=== PATIENT | female | born 1930 | race Caucasian/White ===

== ENCOUNTER 2016-07-18 16:47 | Inpatient (IN) | payer MEDICARE, OTHER ==
[~2016-07-18] VITALS: Ht 152.4 cm; Wt 38.6 kg
[~2016-07-18 16:47] MED LIST: CALC12502 PO; CENTTAB PO; CHOL1TAB5 PO; DIAZ5 PO; IBAN150T3 PO; IMIT25TA PO; PROT40TA PO; ZOLO25TA PO; [UNRECOGNIZED DRUG - REMARK]
[2016-07-18 16:53] VITALS: RESP 16; TEMP 97.9
[2016-07-18 16:58] VITALS: BP 188/85; PULSE 82; RESP 16; TEMP 98; O2SAT 96
[2016-07-18] MEDS ORDERED: BONI150T PO (17:04)
--- NOTE | 2016-07-18 17:13 | PD ---
HPI Chief Complaint: General Weakness Time Seen by Provider: 17:02 Travel History International Travel<30 days: No Contact w/Intl Traveler<30days: No Traveled to known affect area: No History of Present Illness HPI 85-year-old female sent in by her primary care physician Dr. Nunes for evaluation of generalized weakness and inability to ambulate. According to his office note the patient has been worked up for this by him, has been seen by an outpatient neurologist, full outpatient workup has been negative. Today the patient is unable to rise out of her walker. Patient denies any physical complaints other than generalized weakness. No fevers or recent illness. No chest pain or dyspnea. No headache. PFSH Past Medical History Anxiety: Yes High Cholesterol: Yes GERD: Yes Migraines: Yes Past Surgical History Abdominal Surgery: Yes Appendectomy: Yes Hysterectomy: Yes Tonsillectomy: Yes Social History Alcohol Use: No Tobacco Use: No Substance Use: No Allergies-Medications (Allergen,Severity, Reaction): Coded Allergies: Demerol (Verified Allergy, Mild, HULLICINATION, 07/18/16) Reported Meds & Prescriptions Reported Meds & Active Scripts Active Zoloft (Sertraline HCl) 25 Mg Tab 25 Mg PO DAILY Protonix (Pantoprazole Sodium) 40 Mg Tab 40 Mg PO DAILY Reported Boniva (Ibandronate Sodium) 150 Mg Tab 150 Mg PO Q28D Calcium Carbonate 1,250 Mg Tab 1,250 Mg PO DAILY 1,250 mg calcium carbonate (500 mg elemental calcium) D 5000 (Cholecalciferol) 5,000 Unit Tab 1 Tab PO WEEKLY Centrum Silver (Multiple Vitamins W/ Minerals) 1 Tab 1 Tab PO DAILY Review of Systems Except as stated in HPI: all other systems reviewed are Neg Physical Exam Narrative GENERAL: Well-developed, frail, elderly-appearing female, comfortable, awake, alert, no acute distress. SKIN: Warm and dry. HEAD: Atraumatic. Normocephalic. EYES: Pupils equal and round. No scleral icterus. No injection or drainage. ENT: Mucous membranes pink and moist. NECK: Trachea midline. No JVD. CARDIOVASCULAR: Regular rate and rhythm. RESPIRATORY: No accessory muscle use. Clear to auscultation. Breath sounds equal bilaterally. GASTROINTESTINAL: Abdomen soft, non-tender, nondistended. MUSCULOSKELETAL: No obvious deformities. No clubbing. No cyanosis. No edema. NEUROLOGICAL: Awake and alert. No obvious cranial nerve deficits. Motor grossly within normal limits. Normal speech. No focal deficits. PSYCHIATRIC: Appropriate mood and affect; insight and judgment normal. Data Data Last Documented VS Vital Signs Date Time Temp Pulse Resp B/P Pulse Ox O2 Delivery O2 Flow Rate FiO2 07/18/16 17:31 96 Room Air 07/18/16 16:58 98.0 82 16 188/85 Orders Complete Blood Count With Diff (07/18/16:08) Comprehensive Metabolic Panel (07/18/16 17:08) Prothrombin Time / Inr (Pt) (07/18/16 17:08) Act Partial Throm Time (Ptt) (07/18/16:08) Urinalysis - C+S If Indicated (07/18/16:08) Iv Access Insert/Monitor (07/18/16:08) Ecg Monitoring (07/18/16:08) Oximetry (07/18/16:08) Sodium Chloride 0.9% Flush (Ns Flush) (07/18/16 17:15) Electrocardiogram (07/18/16 17:08) Cath For Specimen (07/18/16 17:08) Ckmb (Isoenzyme) Profile (07/18/16 17:21) Troponin I (07/18/16 17:21) MDM Medical Decision Making Medical Screen Exam Complete: Yes Emergency Medical Condition: Yes Interpretation(s) EKG: Sinus, rate 79, normal axis, normal intervals, slight ST depressions in lateral leads, no ST segment elevations. Differential Diagnosis Metabolic abnormality, anemia, UTI, intracranial abnormality, generalized weakness Narrative Course Vital signs show heart rate 2, blood pressure 188/85, pulse ox 96% on room air, oral temp of 98F Case discussed with nuclear medical technologist Dr. Boyer who discussed the case with the patient's primary care physician Dr. Nunes. The patient will be admitted to their service for further treatment and evaluation of generalized weakness, inability to ambulate. All labs will be followed up by them. Diagnosis Primary Impression: Generalized muscle weakness Additional Impression: Unable to ambulate Admitting Information Admitting Physician Requests: Observation Leonard Pedraza MD Jul 18, 2016 17:13
[2016-07-18] MEDS ORDERED: SODIUM CHLORIDE 0.9% FLUSH 5 ML FLUSH IVF PRN (17:15)
[2016-07-18 17:31] VITALS: O2SAT 96
[2016-07-18 17:46] LABS: AUTOMATED NEUTROPHIL # 6.5 TH/MM3 (1.8-7.7); BASOPHIL % 0.2 % (0.0-2.0); EOSINOPHIL % 0.2 % (0.0-4.0); HEMATOCRIT 38.6 % (35.0-46.0); HEMO FLAGS DIFF FINAL; LYMPH % 17.7 % (9.0-44.0); LYMPHOCYTE # 1.6 TH/MM3 (1.0-4.8); MEAN CORPUSCULAR HEMOGLOBIN 33.1 PG (27.0-34.0); MEAN CORPUSCULAR HGB CONC 34.8 % (32.0-36.0); MONO % 8.3 % (0.0-8.0); NEUT % 73.6 % (16.0-70.0); PLATELET COUNT 194 TH/MM3 (150-450); RED BLOOD COUNT 4.07 MIL/MM3 (4.00-5.30); RED CELL DISTRIBUTION WIDTH 13.2 % (11.6-17.2); WHITE BLOOD COUNT 8.9 TH/MM3 (4.0-11.0)
[2016-07-18 17:49] LABS: BLOOD, URINE NEG (NEG); COMMENT (UR) CATH-CULT NOT IND; CULTURE IF INDICATED CATH CULTURE NOT IND; GLUCOSE,URINE NEG (NEG); KETONE, URINE 40 mg/dL (NEG); NITRITE,URINE NEG (NEG); URINE COLOR YELLOW (YELLW/STRAW)
[2016-07-18 17:57] LABS: APTT (PATIENT) 24.7 SEC (24.3-30.1); PROTHROMBIN TIME - PATIENT 10.8 SEC (9.8-11.6)
[2016-07-18 18:01] VITALS: BP 155/75; PULSE 80; RESP 18; O2SAT 96
[2016-07-18 18:01] LABS: ANION GAP 10 MEQ/L (5-15); AST (GOT) 13 U/L (15-37); BICARBONATE 26.5 MEQ/L (21.0-32.0); BLOOD UREA NITROGEN 18 MG/DL (7-18); CHLORIDE 103 MEQ/L (98-107); GLOMERULAR FILTRATION RATE 60 ML/MIN (>89); POTASSIUM 3.3 MEQ/L (3.5-5.1); SODIUM (NA) 139 MEQ/L (136-145)
--- NOTE | 2016-07-18 18:02 | HHI.HP ---
[facility] Service Family Medicine Primary Care Physician Clement Nunes MD Admission Diagnosis generalized weakness, unable to ambulate Diagnoses: International Travel<30 Days: No Contact w/Intl Traveler<30days: No Known Affected Area: No History of Present Illness Patient is an 85-year-old female who presents to the ED following outpatient visit for work-up of generalized weakness. PCP is Dr. Nunes. She was seen in acute clinic at the [facility] this morning 08/04/2016. She does note these symptoms are chronic, with acute exacerbation. Onset was 3 years ago. Since October she has had notably worsening symptoms and has undergone extensive outpatient workup. Over the last three days she has not been able to walk at all. This has gotten worse over the last three days. Has a hard time getting in and out of bed. She began having a hard time pushing the walker. She feels weak and lightheaded, "I' ve had that for a while." Has had four falls, most recently in May 2016; she hit arms and mid-back with the fall (against kitchen cabinet). Other falls were more remote, including March 2016 onto carpeted floor. Work-up as outpatient includes labs, bone density scan, echocardiogram, has seen Neurology who performed an EMG of LE which were normal, has seen Cardiology. She states Neurologist wanted to order MRI but she did not want to proceed with this at that time. She had home physical therapy in April 2016 - May 2016. Uses a seated walker at home. Has a cane but cannot use this due to poor balance. She feels weak in "the whole body." She also endorses tremors in the legs, left leg started before right leg, which began three months and three weeks ago, respectively. She denies headaches, fevers, chills, shortness of breath. No chest pain. No fevers or recent respiratory or diarrheal illnesses. Flu shot was administered in January. No other recent vaccinations. (Liberty Vitale MD R1) Review of Systems Constitutional: COMPLAINS OF: Weight loss (25lb over three years), DENIES: Fever, Chills Eyes: DENIES: Blurred vision, Vision loss Ears, nose, mouth, throat: DENIES: Tinnitus, Nasal discharge, Throat pain, Running Nose Respiratory: DENIES: Cough, Snoring, Wheezing Cardiovascular: DENIES: Chest pain, Palpitations Gastrointestinal: COMPLAINS OF: Constipation, DENIES: Abdominal pain, Black stools, Bloody stools, Diarrhea, Nausea, Vomiting, Difficulty Swallowing Genitourinary: COMPLAINS OF: Urinary frequency, DENIES: Urinary incontinence, Urgency Musculoskeletal: DENIES: Stiffness Integumentary: DENIES: Rash Hematologic/lymphatic: DENIES: Lymphadenopathy Neurologic: COMPLAINS OF: Abnormal gait, Localized weakness (generalized), Paresthesias (feet), Tremor (legs), Poor Balance, DENIES: Headache, Seizures, Speech Problems Psychiatric: COMPLAINS OF: Anxiety (Liberty Vitale MD R1) Past Family Social History Past Medical History Migraines - "not anymore" GERD Anxiety/Panic attacks Shingles - 2010 with post-herpetic neuralgia. She lost a sense of taste, smell, and appetite. Lost 25 pounds over three years time. She now has appetite but not able to gain it back. 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 Moderate aortic valve insufficiency. Grade 2 diastolic dysfunction. Mild mitral valve regurgitation without enlargement of the left atrium. Mild tricuspid valve regurgitation with enlargement of the right atrium. Mild pulmonary valve insufficiency. Discrete upper septal thickening. Bone density 04/07/15: Mild to moderate osteoporosis noted within the lumbar spine at L1-L4. There is been a 9.8% decrease in bone mineral density within the lumbar spine at L1-L4 compared to 04/03/07. Mild to moderate osteoporosis is noted within the left femoral neck. Moderate osteoporosis is noted within the right femoral neck. There is been an 18.1% decrease in total mean proximal femur density compared to 04/03/07. 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) Tobacco: never Alcohol: 5 drinks per year Illicit drug use: none Health Maintenance: Zostavax: never had - had shingles in 2010 Pneumonia: 2010 Tetanus: 2010 Flu: 2016 colonoscopy: 03/14/13: 1 polyp removed, diverticulosis, biopsy done mammogram: 01/09/13: negative influenza vaccine: 01/16/13 Moh's procedure for BCC nose: 12/18/12 DEXA: 2008 - osteopenia Reported Medications Zoloft (Sertraline HCl) 25 Mg Tab 25 Mg PO DAILY - x 1 month Protonix (Pantoprazole Sodium) 40 Mg Tab 40 Mg PO DAILY Reported Boniva (Ibandronate Sodium) 150 Mg Tab 150 Mg PO Q28D Calcium Carbonate 1,250 Mg Tab 1,250 Mg PO DAILY 1,250 mg calcium carbonate (500 mg elemental calcium) D 5000 (Cholecalciferol) 5,000 Unit Tab 1 Tab PO WEEKLY Centrum Silver (Multiple Vitamins W/ Minerals) 1 Tab 1 Tab PO DAILY (Liberty Vitale MD R1) Allergies: Coded Allergies: Demerol (Verified Allergy, Mild, HULLICINATION, 07/18/16) Physical Exam Vital Signs Vital Signs Date Time Temp Pulse Resp B/P Pulse Ox O2 Delivery O2 Flow Rate FiO2 07/18/16 17:31 96 Room Air 07/18/16 16:58 98.0 82 16 188/85 96 Room Air 07/18/16 16:53 97.9 16 Physical Exam GENERAL: This is a very thin female patient. She is lying in bed in no apparent distress. SKIN: No rashes. Ecchymoses noted on the dorsal surface left hand. Skin is cool and dry. Sacral area free of lesions. HEAD: Atraumatic. Normocephalic. No temporal or scalp tenderness. EYES: Pupils equal round and reactive. Extraocular motions intact. No scleral icterus. No injection or drainage. ENT: Nose without bleeding, purulent drainage or septal hematoma. Throat without erythema, tonsillar hypertrophy or exudate. Uvula midline. Airway patent. NECK: Trachea midline. No JVD or lymphadenopathy. Supple, nontender, no meningeal signs. CARDIOVASCULAR: Regular rate and rhythm without murmurs, gallops, or rubs. RESPIRATORY: Clear to auscultation. Breath sounds equal bilaterally. No wheezes , rales, or rhonchi. GASTROINTESTINAL: Abdomen soft, non-tender, nondistended. No hepato-splenomegaly , or palpable masses. No guarding. MUSCULOSKELETAL: Arthritic changes of hands. Extremities without clubbing, cyanosis, or edema. No joint tenderness, effusion, or edema noted. No calf tenderness. Negative Homans sign bilaterally. NEUROLOGICAL: Awake and alert. Cranial nerves II through XII intact. Motor and sensory within normal limits. Borderline 4/5 muscle strength in all muscle groups. Normal speech. Cerebellar tests within normal limits. No pronator drift. Laboratory Laboratory Tests Test 07/18/16 07/18/16 17:12 17:22 White Blood Count 8.9 Red Blood Count 4.07 Hemoglobin 13.5 Hematocrit 38.6 Mean Corpuscular Volume 95.0 Mean Corpuscular Hemoglobin 33.1 Mean Corpuscular Hemoglobin 34.8 Concent Red Cell Distribution Width 13.2 Platelet Count 194 Mean Platelet Volume 8.3 Neutrophils (%) (Auto) 73.6 Lymphocytes (%) (Auto) 17.7 Monocytes (%) (Auto) 8.3 Eosinophils (%) (Auto) 0.2 Basophils (%) (Auto) 0.2 Neutrophils # (Auto) 6.5 Lymphocytes # (Auto) 1.6 Monocytes # (Auto) 0.7 Eosinophils # (Auto) 0.0 Basophils # (Auto) 0.0 CBC Comment DIFF FINAL Differential Comment Prothrombin Time 10.8 Prothromb Time International 1.0 Ratio Activated Partial 24.7 Thromboplast Time Urine Color YELLOW Urine Turbidity HAZY Urine pH 7.0 Urine Specific [place] 1.011 Urine Protein NEG Urine Glucose (UA) NEG Urine Ketones 40 Urine Occult Blood NEG Urine Nitrite NEG Urine Bilirubin NEG Urine Urobilinogen LESS THAN 2.0 Urine Leukocyte Esterase NEG Urine RBC LESS THAN 1 Urine WBC 1 Urine Amorphous Sediment FEW Microscopic Urinalysis Comment CATH-CULT NOT IND (Liberty Vitale MD R1) Result Diagram: 07/18/16 1712 Assessment and Plan Assessment and Plan 85-year-old female presented for further workup of acute on chronic diffuse weakness. Labs collected at admission were unremarkable aside from mild hypokalemia. She'll be admitted for workup and evaluation by neurology service. Code Status Full code Discussed Condition With SDW Dr. Boyer (Liberty Vitale MD R1) Attending Attestation THIS CASE WAS DISCUSSED WITH THE RESIDENT PHYSICIANS. I HAVE REVIEWED THE RECORD AND AGREE WITH THE ABOVE NOTE AND PLAN OF CARE WAS DISCUSSED. I HAVE AUTHORIZED THE ORDER FOR ADMISSION TO AN IN-PATIENT STATUS. (Clement Nunes MD) Problem List: (1) Generalized muscle weakness Status: Acute Plan: 85 year old female with worsening weakness of unknown etiology with report of dizziness. Differential includes Guillain-Fountain syndrome, rheumatological dysfunction, depression, central nervous system lesion, previous stroke, cardiac source, failure to thrive. There is no evidence of focal neurologic deficit on exam today. She has been worked up with echocardiogram and cardiology consult as outpatient, unremarkable. EKG on admission showing sinus arrhythmia, rate 79, normal intervals, normal axis, no evidence of ST elevation, no contiguous leads with ST depression. Cardiac enzymes negative on admission. Plan: Basic labs, b12, folate, tsh MRI head without contrast Consult neurology for recommendations in further evaluation Patient requests Nino catheter due to immobility, will reevaluate tomorrow (2) Unable to ambulate Status: Acute Plan: Acute on chronic weakness resulting in inability to ambulate. Patient has requested Nino catheter due to extensive inability to move. This suggests an element of deconditioning which requires long-term rehabilitation. -PT, OT, and case management consulted to assist in discharge planning (3) Depression with anxiety Status: Acute Plan: Per patient, she has recently been started on Zoloft 25 mg. She denies any obvious benefit of the medication Will continue at this time (4) Hypertension Status: Acute (5) Fluids/Electrolytes/Nutrition/Prophylaxis Status: Acute Plan: Fluids: tolerating PO Electrolytes: Monitor and replete as needed Nutrition: Regular diet with added boost DVT Prophylaxis:Lovenox 40mg subQ q24hr GI Prophylaxis: not indicated (Liberty Vitale MD R1) Liberty Vitale MD R1 Jul 18, 2016 18:02 Clement Nunes MD Jul 19, 2016 11:12
[2016-07-18 18:04] LABS: ALKALINE PHOSPHATASE 55 U/L (45-117); ALT (GPT) 20 U/L (10-53); TOTAL BILIRUBIN ADULT 1.1 MG/DL (0.2-1.0)
[2016-07-18] MEDS ORDERED: SODIUM CHLORIDE 0.9% FLUSH 5 ML FLUSH FLUSH PRN (19:00)
[2016-07-18] MEDS ORDERED: PILL SPLITTER OTHER PRN (19:00)
[2016-07-18] MEDS ORDERED: ACETAMINOPHEN 325 MG TAB PO PRN (19:00)
[2016-07-18] MEDS ORDERED: NALOXONE HCL 0.4 MG/ML AMP IV PRN (19:00)
[2016-07-18] MEDS ORDERED: DOCUSATE SODIUM 50 MG/SENNA 8.6 MG TAB PO PRN (19:00)
[2016-07-18 19:22] VITALS: BP 169/80; PULSE 85; RESP 16; O2SAT 96
[2016-07-18 20:46] LABS: CREATINE KINASE 48 U/L (26-192)
[2016-07-18] MEDS: SODIUM CHLORIDE 0.9% FLUSH 5 ML FLUSH FLUSH SCH (21:00)
[2016-07-18] MEDS ORDERED: hydrALAZINE HCL 10 MG TAB PO PRN (21:15)
[2016-07-18] MEDS ORDERED: cloNIDine HCL 0.1 MG TAB PO PRN (21:15)
--- NOTE | 2016-07-18 21:38 | RADRPT ---
EXAM DATE/TIME: 07/18/2016 20:47 [facility] COMPARISON: CT BRAIN W/O CONTRAST, May 05, 2014, 11:10. INDICATIONS : Inability to ambulate. Weakness. MEDICAL HISTORY : Hypercholesterolemia. Gastroesophageal reflux disease. SURGICAL HISTORY : Appendectomy. Hysterectomy. Tonsillectomy. Cataracts. ENCOUNTER: Initial ACUITY: 1 day PAIN SCORE: 0/10 LOCATION: cranial TECHNIQUE: Multiplanar, multisequence MRI of the brain was performed without contrast. FINDINGS: CEREBRUM: The ventricles are normal for age. No evidence of midline shift, mass lesion, hemorrhage or acute in farction. No extraaxial fluid collections are seen. The pituitary gland and suprasellar cistern are normal in configuration. WHITE MATTER: On the flair weighted images there are scattered punctate small areas of increased signal throughout the white matter characteristic of chronic small vessel ischemic change. POSTERIOR FOSSA: The cerebellum and brainstem are intact. The 4th ventricle is midline. The cerebellopontine angle is unremarkable. The cerebellar tonsils are normal in position. DIFFUSION IMAGING: No focal areas of restricted diffusion are seen. No evidence of acute infarction. EXTRACRANIAL: The visualized portions of the orbits and paranasal sinuses are unremarkable. CONCLUSION: 1. No acute hemorrhage, stroke or mass effect. 2. Atrophy and chronic small vessel ischemic change. Cleveland Delvalle MD on July 18, 2016 at 21:35 Board Certified Radiologist. This report was verified electronically.
[2016-07-18] MEDS ORDERED: POTASSIUM CHLORIDE 10 MEQ CONTROLLED RELEASE TAB PO ONE (22:00)
[2016-07-19 04:22] LABS: AUTOMATED NEUTROPHIL # 6.8 TH/MM3 (1.8-7.7); BASOPHIL % 0.5 % (0.0-2.0); EOSINOPHIL # 0.1 TH/MM3 (0-0.4); EOSINOPHIL % 0.9 % (0.0-4.0); HEMATOCRIT 34.3 % (35.0-46.0); HEMO FLAGS DIFF FINAL; LYMPH % 18.3 % (9.0-44.0); LYMPHOCYTE # 1.8 TH/MM3 (1.0-4.8); MEAN CELL VOLUME 94.6 FL (80.0-100.0); MEAN CORPUSCULAR HEMOGLOBIN 33.7 PG (27.0-34.0); MEAN CORPUSCULAR HGB CONC 35.6 % (32.0-36.0); MONO % 9.8 % (0.0-8.0); NEUT % 70.5 % (16.0-70.0); PLATELET COUNT 168 TH/MM3 (150-450); RED BLOOD COUNT 3.63 MIL/MM3 (4.00-5.30); RED CELL DISTRIBUTION WIDTH 13.2 % (11.6-17.2); WHITE BLOOD COUNT 9.7 TH/MM3 (4.0-11.0)
[2016-07-19 04:58] LABS: BICARBONATE 25.5 MEQ/L (21.0-32.0); POTASSIUM 3.8 MEQ/L (3.5-5.1)
[2016-07-19 05:52] VITALS: BP 140/73; PULSE 72; RESP 18; TEMP 97.9; O2SAT 96
[2016-07-19 08:04] VITALS: BP 142/72; PULSE 78; RESP 18; TEMP 97.3; O2SAT 95
[2016-07-19] MEDS: CALCIUM CARBONATE 1.25 GM (CA 500 MG) TAB PO SCH (08:32)
[2016-07-19] MEDS: SERTRALINE HCL 50 MG TAB PO SCH (08:32)
[2016-07-19] MEDS: PANTOPRAZOLE SOD 40 MG DELAYED RELEASE TAB PO SCH (08:32)
[2016-07-19] MEDS: ENOXAPARIN SODIUM 40 MG/0.4 ML SYRINGE SQ SCH (08:32)
[2016-07-19] MEDS: SODIUM CHLORIDE 0.9% FLUSH 5 ML FLUSH FLUSH SCH ×2 (08:32→21:38)
[2016-07-19] MEDS: CARBIDOPA/LEVODOPA 10 MG/100 MG TAB PO SCH ×3 (10:06→21:38)
--- NOTE | 2016-07-19 11:11 | HHI.FPPN ---
Subjective Remarks No acute events overnight and patient is feeling relatively well this morning. She was able to get up and walk with physical therapy and states that it felt "great to walk" as she has been unable to do this at home. She denies any fevers or chills. She denies any nausea or vomiting. She denies any dizziness. She denies any chest pain or palpitations. She has breakfast next to her but has not eaten breakfast as of this time, nutrition has already been by to see her and told her they would add ensure to her meals. In summary this is an 85-year-old female who was sent to the emergency department from the acute care clinic for progressive weakness and inability to ambulate. This has been a progressive process over the course of the last several months. She has been evaluated in the outpatient by cardiology and neurology with a negative workup. She has also been worked up in the outpatient office with lab work is all returned normal. She most recently was treated for possible depression with Zoloft 25 mg that she has been on for the last 4 weeks. Echocardiogram done 04/07/15: Good left ventricular systolic function with an EF of 68%. Moderate aortic valve insufficiency. Grade 2 diastolic dysfunction. Mild mitral valve regurgitation without enlargement of the left atrium. Mild tricuspid valve regurgitation with enlargement of the right atrium. Mild pulmonary valve insufficiency. Discrete upper septal thickening. Bone density exam: 04/07/15: Mild to moderate osteoporosis is noted within the lumbar spine at L1 and L4. There is been a 9.8% decrease in bone mineral density within the lumbar spine at L1-L4 impaired to 04/03/07. Mild to moderate osteoporosis is noted within the left moral neck. Moderate osteoporosis is noted within the right femoral neck. 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) Tobacco: never Alcohol: 5 drinks per year Illicit drug use: none Health Maintenance: Zostavax: never had - had shingles in 2010 Pneumonia vaccination: 2010 Tetanus: 2010 Flu vaccination: Fall 2015 Objective Vitals Vital Signs Date Time Temp Pulse Resp B/P Pulse Ox O2 Delivery O2 Flow Rate FiO2 07/19/16 08:04 97.3 78 18 142/72 95 07/19/16 05:52 97.9 72 18 140/73 96 07/18/16 19:55 21 07/18/16 19:22 85 16 169/80 96 Room Air 07/18/16 18:01 80 18 155/75 96 Room Air 07/18/16 17:31 96 Room Air 07/18/16 16:58 98.0 82 16 188/85 96 Room Air 07/18/16 16:53 97.9 16 Result Diagram: 07/19/16 0404 07/19/16 0414 Objective Remarks GENERAL: This is a very thin female patient. She is lying in bed in no apparent distress. SKIN: No rashes. Ecchymoses noted on the dorsal surface left hand. HEAD: Atraumatic. Normocephalic. Facial twitching noted while talking. EYES: Pupils equal round and reactive. Extraocular motions intact. No scleral icterus. No injection or drainage. CARDIOVASCULAR: Regular rate and rhythm without murmurs, gallops, or rubs. RESPIRATORY: Clear to auscultation. Breath sounds equal bilaterally. No wheezes , rales, or rhonchi. GASTROINTESTINAL: Abdomen soft, non-tender, nondistended. MUSCULOSKELETAL: Arthritic changes of MCP, PIP, and DIP joints of hands. Extremities without clubbing, cyanosis, or edema. There does appear to be some cogwheeling of the upper extremities NEUROLOGICAL: Awake and alert. Cranial nerves II through XII intact. Urinary Catheter: Yes Assessment to: Continue Nino insert reason: Prolonged Immobilization Date of Insertion: Jul 18, 2016 Vascular Central Line Catheter: No A/P Assessment and Plan 85-year-old female presented progressive weakness and inability to ambulate Problem List: (1) Generalized muscle weakness Status: Acute Plan: Physical therapy and occupational consulted to evaluate patient MRI brain performed and was negative except for chronic ischemic changes MRI cervical spine pending Appreciate neurology evaluation of patient, started on carbidopa/levodopa 10 100 every 8 hours Awaiting formal neurology report from consultation Patient was started on Zoloft for possible depression given progressive loss of independence Psychiatry has been consulted to evaluate patient for possible adjunctive treatment for depression if needed Case management consulted to assist with discharge planning, likely will need rehabilitation at a rehabilitation center or assisted living facility Lab work including CBC and CMP within normal limits Vitamin B-12, folate, and TSH within normal limits (2) Unable to ambulate Status: Acute Plan: Acute on chronic weakness resulting in inability to ambulate. Workup as above (3) Depression with anxiety Status: Acute Plan: Currently on Zoloft 25 mg the patient states no obvious benefit Psychiatry consulted to evaluate patient (4) Failure to thrive in adult Status: Acute Plan: Nutrition consulted to evaluate patient Continue with regular diet Supplement meals with ensure shakes (5) Hypertension Status: Acute Plan: Patient not on oral anti-hypertensives as an outpatient Continue to monitor and use as needed medication (6) Fluids/Electrolytes/Nutrition/Prophylaxis Status: Acute Plan: Fluids: tolerating PO Electrolytes: Monitor and replete as needed Nutrition: Regular diet with added boost DVT Prophylaxis:Lovenox 40mg subQ q24hr GI Prophylaxis: not indicated Clement Nunes MD Jul 19, 2016 11:11
[2016-07-19] MEDS ORDERED: GADODIAMIDE PF 287 MG/ML 10 ML VIAL (for RAD MRI) IV ONE (12:16)
--- NOTE | 2016-07-19 12:52 | MB ---
cc: EDVIN SWENSON MD DATE OF CONSULTATION: 07/19/2016 REASON FOR CONSULTATION Generalized weakness and inability to ambulate. HISTORY OF PRESENT ILLNESS Ms. Miller is an 85-year-old female who presented to the [facility] Emergency Department following an outpatient work-up for generalized weakness. Her primary care physician referred her to the ER because of the acute on chronic weakness. The patient states that she has had progressive weakness over three years duration with difficulty in walking and tremor of both hands. The patient states that she has mild low backache but her legs feels stiff and occasionally she tends to fall and feels lightheaded. As a matter of fact she sustained multiple falls, the last one May 2016. The patient denies any sensory symptoms of the lower extremities, numbness or tingling, but she states that she is weak in both legs. She also complains of weakness of both upper extremities with tremor in both hands. She denies any history of injury to the neck or back or history of stroke or TIA. She has difficulty controlling her bladder and currently there is a Nino in place. The patient denies headache, double vision, blurred vision, speech difficulty, numbness of the face, passing out or convulsions. The patient denies any history of Parkinson's disease or family history of Parkinson's disease. Work-up as an outpatient included labs, bone density scan, echo and EMG of the lower extremities by a neurologist that she cannot recall the name of, and were reported as normal. The patient had some home physical therapy at the end of April to May and she uses a walker at baseline for stability. REVIEW OF SYSTEMS A 12-point review of systems is negative except for what is stated in the HPI. PAST MEDICAL HISTORY 1. History of migraine. 2. GERD. 3. Anxiety. 4. Panic attacks. 5. Shingles. 6. Postherpetic neuralgia and dizziness PAST SURGICAL HISTORY 1. Radical hysterectomy 1974. 2. Tonsillectomy and adenoidectomy 1949. 3. Bilateral cataract 2001 and 2005. FAMILY HISTORY Father of a stroke. Mother of lymphoma. Sister with hypertension and glaucoma. Children, two daughters are healthy. SOCIAL HISTORY She has and lives with her who is 92 and healthy and takes care of the house. Never smoked. Alcohol, five drinks per year. No illicit drug use. ALLERGIES DEMEROL. PHYSICAL EXAMINATION GENERAL: A very frail female patient not in acute distress, pleasant and a good historian. HEENT: Atraumatic, normocephalic. Normal vision and intact hearing. NECK: No signs of meningeal irritation. No carotid bruit. CARDIOVASCULAR: Regular rate and rhythm. PULMONARY: Clear to auscultation. No wheezes. EXTREMITIES: Evident ulnar deviation and traumatic nodules in bilateral hands with tremor of both hands. No clubbing or cyanosis. There is skin scaling bilateral lower extremities with deformed toes. NEUROLOGIC: Awake, alert, oriented to time, person and place. Cranial nerves are grossly intact. Motor examination reveals upper extremities 5-/5 bilateral and symmetrical with bilateral coarse hand tremor with cogwheel rigidity in bilateral upper extremities mainly at the elbow joint. Lower extremity bilateral hip flexion 4+/5, otherwise 5-/5 bilateral symmetrical. Mild stiffness in the bilateral lower extremities. No tremor noted in the lower extremities. Reflexes are 2+ with finger flexion bilateral upper extremities, right more than the left positive finger flexion. Lower extremities spastic, hyperreflexia bilateral knees, nonsustained clonus left ankle. Plantars left upgoing, right mute. Sensation is intact, bilateral and symmetrical. Cerebellar function, [id number] and qery-da-[id number] is intact. The patient would not stand up because she said that she has been catheterized and she does not want to stand up. DIAGNOSTIC IMAGING - MRI brain wo/c was reported with no acute hemorrhage, stroke or mass effect. There is atrophy and chronic small vessel ischemic changes noted. LABORATORY DATA WBC 9.7, hemoglobin 12.2, MCV 94.6, platelet count 168. Sodium 142, potassium 3.8, anion gap 11, BUN 24, creatinine 0.98. Vitamin B12 71, folate 30.9. TSH 0.946. INR 1. DIAGNOSTIC IMPRESSION 1. Extrapyramidal tremor with rigidity bilateral upper extremities. 2. 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 3. Gait difficulty, likely related to spastic lower extremities. PLAN 1. Neuro-checks q.4h. 2. Carbidopa/levodopa 10/100 mg three times daily. 3. Cervical spine MRI with and without contrast. 4. Physical therapy and occupational therapy recommendations are appreciated. 5. DVT prophylaxis with SCDs. 6. GI prophylaxis. Thank you for the opportunity to participate in the care of your patient. MD ARIADNE Solis /8:26 AM /11:26 AM MTDD
--- NOTE | 2016-07-19 13:04 | RADRPT ---
EXAM DATE/TIME: 07/19/2016 11:41 [place] COMPARISON: No previous studies available for comparison. INDICATIONS : Generalized weakness. CONTRAST: 8 cc Omniscan (gadodiamide) IV MEDICAL HISTORY : Gastroesophageal reflux disease. SURGICAL HISTORY : Tonsillectomy. Appendectomy. Hysterectomy. ENCOUNTER: Subsequent ACUITY: 3 day PAIN SCORE: 0/10 LOCATION: neck TECHNIQUE: Multiplanar, multisequence MRI examination of the cervical spine was performed. FINDINGS: VERTEBRAE: Normal vertebral body height. Homogeneous marrow signal. Prominent degenerative changes at C4-5 and C5-6. There is some minimal bony bridging posteriorly at C4-5. ALIGNMENT: Minimal retrolisthesis C5 on C6. CORD: Normal configuration and signal. POST FOSSA: The cerebellar tonsils are normal in position. POST-CONTRAST: No abnormal areas of enhancement are seen. C2-C3: The thecal sac has a normal configuration. There is no evidence of disc herniation or spinal canal stenosis. The neural foramina are patent bilaterally. C3-C4: The thecal sac has a normal configuration. There is no evidence of disc herniation or spinal canal s tenosis. The neural foramina are patent bilaterally. C4-C5: Broad-based posterior disc osteophyte complex without spinal canal stenosis. The neural foramina are patent bilaterally. C5-C6: Minimal retrolisthesis. Prominent broad-based posterior disc osteophyte complex abuts the ventral cor d and causes mild spinal canal stenosis. Uncovertebral spurring causes moderate bilateral neural for aminal narrowing. C6-C7: Minimal broad-based posterior disc osteophyte complex abuts the ventral thecal sac. No canal stenosis . The neural foramina are patent bilaterally. C7-T1: The thecal sac has a normal configuration. There is no evidence of disc herniation or spinal canal s tenosis. The neural foramina are patent bilaterally. CONCLUSION: 1. Prominent degenerative changes at C4-5 with broad based posterior disc osteophyte complex. No oscar l stenosis. 2. Minimal retrolisthesis C5 on C6 with broad-based posterior disc osteophyte complex causing mild ca nal stenosis. 3. Minimal broad-based posterior disc osteophyte complex at C6-7 without canal stenosis. Giancarlo Sow MD on July 19, 2016 at 12:58 Board Certified Radiologist. This report was verified electronically.
[2016-07-19 13:06] VITALS: BP 128/69; PULSE 75; RESP 18
[2016-07-19 16:00] VITALS: BP_SYST 108; PULSE 66; RESP 18; TEMP 97.9; O2SAT 97
[2016-07-19 20:00] VITALS: BP 113/64; PULSE 75; RESP 20; TEMP 98; O2SAT 97
[2016-07-20] VITALS (8 sets, daily range): BP systolic 109–154; BP diastolic 67–84; PULSE 68–79; RESP 18–20; TEMP 97.2–99.5; O2SAT 96–99
[2016-07-20] MEDS: CARBIDOPA/LEVODOPA 10 MG/100 MG TAB PO SCH ×3 (05:41→20:33)
--- NOTE | 2016-07-20 07:30 | EKG ---
Date Performed: 07/18/2016 Time Performed: 15:20:04 PTAGE: 85 years EKG: Sinus rhythm WITH SINUS ARRHYTHMIA Nonspecific ST wave changes Compared to prior tracing no significant change AB NORMAL ECG PREVIOUS TRACING : 12/28/2009 13.27 DOCTOR: Ryan Rodrigez Interpretating Date/Time 07/20/2016 07:28:10
[2016-07-20] MEDS: PANTOPRAZOLE SOD 40 MG DELAYED RELEASE TAB PO SCH (09:13)
[2016-07-20] MEDS: CALCIUM CARBONATE 1.25 GM (CA 500 MG) TAB PO SCH (09:13)
[2016-07-20] MEDS: SODIUM CHLORIDE 0.9% FLUSH 5 ML FLUSH FLUSH SCH ×2 (09:14→20:35)
[2016-07-20] MEDS: ENOXAPARIN SODIUM 40 MG/0.4 ML SYRINGE SQ SCH (09:14)
[2016-07-20] MEDS: SERTRALINE HCL 50 MG TAB PO SCH (09:14)
--- NOTE | 2016-07-20 12:08 | HHI.FPPN ---
Subjective Remarks Patient seen this morning. No acute events overnight. Vitals essentially WNL. Cele c/o visual hallucinations this morning. She thinks this is related to to sinemet. She is awake she is seeing things that should not be there. This morning, she states she "sees the TV, but it looks like it is on the celling". She reports weakness is unchanged. She did walk with PT yesterday. They have recommended rehab. Patient c/o [id number] urge incontinence. She has this at baseline, but now she is afraid she cannot walk to bathroom in time. She requested canchola on admission because of this. She is open to trying depends. No other complaints. Appetite increased yesterday, but down again today. She denies any N/V. Does not feel depressed. Does have some mild anxiety. She thinks this is from "not knowing what is going on with her ". Denies any SI. (Rod Herrera MD R3) Objective Vitals Vital Signs Date Time Temp Pulse Resp B/P Pulse Ox O2 Delivery O2 Flow Rate FiO2 07/20/16 08:19 98 21 07/20/16 08:00 97.4 71 20 135/79 98 07/20/16 04:00 97.2 75 20 154/84 99 07/20/16 00:00 98.2 68 20 114/67 97 07/19/16 21:50 21 07/19/16 20:00 98.0 75 20 113/64 97 07/19/16 16:00 97.9 66 18 108/ 97 07/19/16 13:06 75 18 128/69 I/O 07/19/16 07/19/16 07/19/16 07/20/16 07/20/16 07/20/16 07:00 15:00 23:00 07:00 15:00 23:00 Intake Total 400 ml 240 ml 240 ml Output Total 700 ml 400 ml 400 ml Balance -300 ml -160 ml -160 ml Intake Oral 400 ml 240 ml 240 ml Output Urine Total 700 ml 400 ml 400 ml # Bowel Movements 0 0 (Rod Herrera MD R3) Result Diagram: 07/19/16 0404 07/19/16 0414 Objective Remarks GENERAL: This is a very thin female patient. She is lying in bed in no apparent distress. ? masked facies. SKIN: No rashes. Ecchymoses noted on the dorsal surface left hand. CARDIOVASCULAR: Regular rate and rhythm without murmurs, gallops, or rubs. RESPIRATORY: Clear to auscultation. Breath sounds equal bilaterally. No wheezes , rales, or rhonchi. GASTROINTESTINAL: Abdomen soft, non-tender, nondistended. MUSCULOSKELETAL: Arthritic changes of MCP, PIP, and DIP joints of hands. Extremities without clubbing, cyanosis, or edema. There does appear to be some cogwheeling of the upper extremities (L>R) NEUROLOGICAL: Awake and alert. (Rod Herrera MD R3) Date of Insertion: Jul 18, 2016 (Rod Herrera MD R3) A/P Assessment and Plan 85-year-old female presented progressive weakness and inability to ambulate. Now c/o visual hallucination and persistent weakness on sinemet. Discharge Planning Needs discharge to SNF. Patient will need 3 night stay in hospital to qualify. Spoke with CM this AM regarding admitting criteria. Appreciate their assistance. Neuro, psych, and dietary to assess patient before DC. Will discuss with Dr. Nunes. (Rod Herrera MD R3) Attending Attestation Patient examined and case discussed with resident physician I have read the above note and agree with the assessment/plan as discussed with me I was involved in all medical decision making for this patient Clement Nunes M.D. (Clement Nuens MD) Problem List: (1) Generalized muscle weakness Status: Acute Plan: Likely FTT. Does have upper extremity spasticity. ? Parkinson's. -MRI brain performed and was negative except for chronic ischemic changes -MRI cervical spine shows diffuse degenerative disc disease with mild C5-C6 canal stenosis. -Patient was started on Zoloft for possible depression given progressive loss of independence -Physical therapy and occupational consulted to evaluate patient. Appreciate their care. They have recommended rehab at discharge. -Appreciate neurology evaluation of patient, started on carbidopa/levodopa 10 100 every 8 hours -Psychiatry has been consulted to evaluate patient for possible adjunctive treatment for depression if needed -Case management consulted to assist with discharge planning History: -Lab work including CBC and CMP within normal limits -Vitamin B-12, folate, and TSH within normal limits (2) Unable to ambulate Status: Acute Plan: Acute on chronic weakness resulting in inability to ambulate. Workup as above (3) Hallucination, visual Status: Acute Plan: Likely medication related. On further interview, patient has h/o similar hallucination with demerol. -cont sinemet for now. Patient will discuss concern for visual hallucination with neurology today. -?, though patient also c/o hallucination this AM. Order to keep lights dim with TV off at night. (4) Depression with anxiety Status: Acute Plan: Currently on Zoloft 25 mg the patient states no obvious benefit Psychiatry consulted to evaluate patient (5) Failure to thrive in adult Status: Acute Plan: Nutrition consulted to evaluate patient Continue with regular diet Supplement meals with ensure shakes (6) Urge incontinence Status: Acute Plan: Appears to be a chronic issue. Discussed with PT today. Patient transfers well. Will change activity to OOB with assistance. Order depends. YOVANNY canchola this afternoon + bladder training. (7) Hypertension Status: Acute Plan: Well controlled. Patient not on oral anti-hypertensives as an outpatient. Continue to monitor and use as needed medication (8) Fluids/Electrolytes/Nutrition/Prophylaxis Status: Acute Plan: Fluids: tolerating PO Electrolytes: Monitor and replete as needed Nutrition: Regular diet with added boost DVT Prophylaxis:Lovenox 40mg subQ q24hr GI Prophylaxis: not indicated (Rod Herrera MD R3) Rod Herrera MD R3 Jul 20, 2016 12:08 Clement Nunes MD Jul 20, 2016 13:53
[2016-07-20] MEDS ORDERED: MAGNESIUM HYDROXIDE SUSP 30 ML CUP PO ONE (12:15)
[2016-07-20] MEDS: DOCUSATE SODIUM 50 MG/SENNA 8.6 MG TAB PO SCH ×2 (13:14→20:34)
--- NOTE | 2016-07-20 17:54 | PD.CONS ---
Provisional Diagnosis Admission Date Jul 19, 2016 at 07:54 Clyman I. Adjustment disorder with anxiety and depression, history of depression and anxiety, delirium due to underlying medical conditions Clyman II. Deferred Clyman III. HTN, failure to thrive, urinary incontinent History of Present Illness Service Psychiatry Consult Requested By Primary Care Physician Clement Nunes MD HPI The patient is a 85-year-old woman, domicile with her in [facility], with psychiatric history of depression and anxiety, no history of psychiatric admissions, no suicidal attempts, she is in Zoloft 25 mg prescribed by PCP, medical history of hypertension, urinary incontinence, hospitalized due to failure to thrive, generalized weakness, frequent falls, electrolyte imbalance. Consulted to psychiatry due to symptoms of depression and anxiety and visual hallucinations. On psychiatric evaluation today the patient is calm , cooperative, she reports good mood at this moment, she denies depressive symptoms, she denies suicidal or homicidal ideation. She reports episodic anxiety, panic attacks consisting in sudden tachycardia, impending doom, sweating, chest pain and nausea sometimes. These attacks last for about 2-3 minutes. Patient is states that these attacks are related with the stress of her hospitalization and current medical conditions. She also endorses one time visual hallucinations, yesterday when she was watching TV she saw the TV moving to the roof. These hallucinations were no frightening for the patient and at every moment patient was insightful about the unreality of the event. Patient never had an episode like this before. Patient reports good sleep, good appetite and concentration. She prefers to continue with her antidepressant, but she refuses to take benzodiazepines "they make me dizzy". Patient is fully oriented 3, attentive, no fluctuation of consciousness, or gross cognitive impairment presents. Patient denies the use of drugs and alcohol. Review of Systems Constitutional: DENIES: Diaphoretic episodes, Fatigue, Fever, Weight gain, Weight loss, Chills, Dizziness, Change in appetite, Night Sweats Endocrine: DENIES: Abnorml menstrual pattern, Heat/cold intolerance, Polydipsia , Polyuria, Polyphagia Eyes: DENIES: Blurred vision, Diplopia, Eye inflammation, Eye pain, Vision loss , Photosensitivity, Double Vision Ears, nose, mouth, throat: DENIES: Tinnitus, Hearing loss, Vertigo, Nasal discharge, Oral lesions, Throat pain, Hoarseness, Ear Pain, Running Nose, Epistaxis, Sinus Pain, Toothache, Odynophagia Respiratory: DENIES: Apneas, Cough, Snoring, Wheezing, Hemoptysis, Sputum production, Shortness of breath Cardiovascular: DENIES: Chest pain, Palpitations, Syncope, Dyspnea on Exertion , PND, Lower Extremity Edema, Orthopnea, Claudication Genitourinary: DENIES: Abnormal vaginal bleeding, Dysmenorrhea, Dyspareunia, Sexual dysfunction, Urinary frequency, Urinary incontinence, Urgency, Hematuria , Dysuria, Nocturia, Vaginal discharge Musculoskeletal: DENIES: Joint pain, Muscle aches, Stiffness, Joint Swelling, Back pain, Neck pain Hematologic/lymphatic: DENIES: Bruising, Lymphadenopathy Immunologic/allergic: DENIES: Eczema, Urticaria Neurologic: DENIES: Abnormal gait, Headache, Localized weakness, Paresthesias, Seizures, Speech Problems, Tremor, Poor Balance Psychiatric: COMPLAINS OF: Anxiety, Depression, DENIES: Confusion, Mood changes, Hallucinations, Agitation, Suicidal Ideation, Homicidal Ideation, Delusions Past Family Social History Coded Allergies: Demerol (Verified Allergy, Mild, HULLICINATION, 07/18/16) Active Scripts Sertraline (Zoloft)25 Mg Tab25 Mg PO DAILY #30 TAB Ref 1 Prov:Clement Nunes MD 06/20/16 Pantoprazole (Protonix)40 Mg Tab40 Mg PO DAILY #90 TAB Ref 1 Prov:Clement Nunes MD 03/08/16 Reported Medications Ibandronate (Boniva)150 Mg Mob408 Mg PO Q28D #1 TAB Ref 0 07/18/16 Calcium Carbonate 1,250 Mg Tab1,250 Mg PO DAILY #90 TAB Ref 0 1,250 mg calcium carbonate (500 mg elemental calcium) 03/14/16 Cholecalciferol (D 5000)5,000 Unit Tab1 Tab PO WEEKLY #12 TAB Ref 1 03/08/16 Multiple Vitamins W/ Minerals (Centrum Silver)1 Tab1 Tab PO DAILY Ref 0 03/08/16 Current Medications Medications (Trade) Dose Ordered Sig/Blanka Route Start Time Stop Time Status Last Admin (Oscal) 1,250 mg DAILY PO 07/19/16 09:00 07/20/16 09:13 (Protonix) 40 mg DAILY PO 07/19/16 09:00 07/20/16 09:13 (Zoloft) 25 mg DAILY PO 07/19/16 09:00 07/20/16 09:14 (Pill Splitter) 1 ea UNSCH PRN OTHER 07/18/16 19:00 (NS Flush) 2 ml UNSCH PRN FLUSH 07/18/16 19:00 (NS Flush) 2 ml BID FLUSH 07/18/16 21:00 07/20/16 09:14 (Tylenol) 650 mg Q4H PRN PO 07/18/16 19:00 (Narcan Inj) 0.4 mg UNSCH PRN IV 07/18/16 19:00 (Mamta-Colace) 2 tab DAILY PRN PO 07/18/16 19:00 (Apresoline) 10 mg Q6HR PRN PO 07/18/16 21:15 (Catapres) 0.1 mg Q6H PRN PO 07/18/16 21:15 (Lovenox Inj) 40 mg Q24H SQ 07/19/16 09:00 07/20/16 09:14 (Sinemet 10-100 Mg) 1 tab Q8HR PO 07/19/16 09:15 07/20/16 13:14 (Mamta-Colace) 1 tab BID PO 07/20/16 13:00 Family History She denies family psychiatric history Social History Patient was born and raised in [place], she has been living in [place] for 4 years , she lives with her 92 years old in [facility], she has 2 daughters, her highest level of education is high school. Patient's Strengths (min. 2) Good cognition Physical Exam Vital Signs Vital Signs Date Time Temp Pulse Resp B/P Pulse Ox O2 Delivery O2 Flow Rate FiO2 07/20/16 12:00 98.1 78 20 128/72 98 07/20/16 08:19 21 07/18/16 19:22 Room Air I/O 07/19/16 07/19/16 07/20/16 08:00 16:00 00:00 Intake Total 400 ml 240 ml Output Total 700 ml 400 ml Balance -300 ml -160 ml Mental Status Examination Appearance Elderly woman, age appearing, good hygiene, calm and cooperative and pleasant Speech: Unremarkable Orientation: x3 Memory: Unremarkable Thought Process: Logical Thought Content: Unremarkable Hallucination Type: None Suicidal Ideation: No Previous Suicide Attempts: No Homicidal Ideation: No Previous Homicide Attempts: No Insight: Good Judgement: WNL Affect: Good Mood: Appropriate Motor Activity: Normal gait Assessment & Plan Problem List: (1) Depression with anxiety Assessment & Plan: The patient is a 85-year-old woman, domicile with her in [facility], with psychiatric history of depression and anxiety, no history of psychiatric admissions, no suicidal attempts, she is in Zoloft 25 mg prescribed by PCP, medical history of hypertension, urinary incontinence, hospitalized due to failure to thrive, generalized weakness, frequent falls, electrolyte imbalance. Consulted to psychiatry due to symptoms of depression and anxiety and visual hallucinations. On psychiatric evaluation today the patient is calm, cooperative, she reports good mood at this moment, she denies depressive symptoms, she denies suicidal or homicidal ideation. She reports episodic anxiety, panic attacks consisting in sudden tachycardia, impending doom , sweating, chest pain and nausea sometimes. These attacks last for about 2-3 minutes. Patient is states that these attacks are related with the stress of her hospitalization and current medical conditions. She also endorses one time visual hallucinations, yesterday when she was watching TV she saw the TV moving to the roof. At this moment the patient does not meet criteria for psychiatric admission. These isolated episode of visual hallucination could be related with delirium due to underlying medical conditions and no to a primary psychiatric illness. Will increase Zoloft to 50 mg to help with depression and anxiety. Xanax 0.25 mg every 8 hours when necessary anxiety also can be given. Extensive psychoeducation, supportive motivation provided. ICD Code: F41.8 Assessment & Plan Estimated LOS: George Macias MD Jul 20, 2016 17:54
--- NOTE | 2016-07-20 22:01 | HHI.PR ---
Review/Management Diagnosis 1. Extrapyramidal tremor with rigidity b/l UE, Parkinson's disease. 2. 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 3. Gait difficulty, likely related to spastic LE 3. Chronic anxiety/depression Plan - Neuro-checks q.4h. -Carbidopa/levodopa 10/100 mg three times daily. - Physical therapy and occupational therapy recommendations are appreciated. - DVT prophylaxis with SCDs. -GI prophylaxis - I explained to the patient that the ?hallucinations/visual/transient may be related to Parkinson's disease or adverse effect of Sinemet, and agreed to continue same dose if adverse effects do not persist. - Patient will need inpatient rehabilitation. Diagnosis/Plan: Subjective Subjective Comments No acute events reported Patient feels better s/p PT/OT Reports less tremor of both hands States that she had visual hallucinations, with mild delirium Cervical spine MRI revealed multiple degenerative disc disease Active Medications Current Medications Medications (Trade) Dose Ordered Sig/Blanka Route Start Time Stop Time Status Last Admin (Oscal) 1,250 mg DAILY PO 07/19/16 09:00 07/20/16 09:13 (Protonix) 40 mg DAILY PO 07/19/16 09:00 07/20/16 09:13 (Pill Splitter) 1 ea UNSCH PRN OTHER 07/18/16 19:00 (NS Flush) 2 ml UNSCH PRN FLUSH 07/18/16 19:00 (NS Flush) 2 ml BID FLUSH 07/18/16 21:00 07/20/16 20:35 (Tylenol) 650 mg Q4H PRN PO 07/18/16 19:00 (Narcan Inj) 0.4 mg UNSCH PRN IV 07/18/16 19:00 (Mamta-Colace) 2 tab DAILY PRN PO 07/18/16 19:00 (Apresoline) 10 mg Q6HR PRN PO 07/18/16 21:15 (Catapres) 0.1 mg Q6H PRN PO 07/18/16 21:15 (Lovenox Inj) 40 mg Q24H SQ 07/19/16 09:00 07/20/16 09:14 (Sinemet 10-100 Mg) 1 tab Q8HR PO 07/19/16 09:15 07/20/16 20:33 (Mamta-Colace) 1 tab BID PO 07/20/16 13:00 (Zoloft) 50 mg DAILY PO 07/21/16 09:00 Allergies Allergies Coded Allergies Demerol (Verified Allergy, Mild, HULLICINATION, 07/18/16) Exam I&O / VS 07/19/16 07/19/16 07/20/16 15:00 23:00 07:00 Intake Total 400 ml 240 ml 240 ml Output Total 700 ml 400 ml 400 ml Balance -300 ml -160 ml -160 ml Intake Oral 400 ml 240 ml 240 ml Output Urine Total 700 ml 400 ml 400 ml # Bowel Movements 0 0 Vital Signs Date Time Temp Pulse Resp B/P Pulse Ox O2 Delivery O2 Flow Rate FiO2 07/20/16 20:00 99.5 74 18 109/72 96 07/20/16 16:00 97.8 79 20 109/69 98 07/20/16 12:00 98.1 78 20 128/72 98 07/20/16 08:19 98 21 07/20/16 08:00 97.4 71 20 135/79 98 07/20/16 04:00 97.2 75 20 154/84 99 07/20/16 00:00 98.2 68 20 114/67 97 07/19/16 21:50 21 Exam Comments GENERAL: A very frail female patient not in acute distress, pleasant and a good historian. HEENT: Atraumatic, normocephalic. Normal vision and intact hearing. NECK: No signs of meningeal irritation. No carotid bruit. CARDIOVASCULAR: Regular rate and rhythm. PULMONARY: Clear to auscultation. No wheezes. EXTREMITIES: Evident ulnar deviation and traumatic nodules in bilateral hands with tremor of both hands. No clubbing or cyanosis. There is skin scaling b/l LE with deformed toes. NEUROLOGIC: Awake, alert, oriented to time, person and place. Cranial nerves are grossly intact. Motor examination reveals upper extremities 5-/5 bilateral and symmetrical with subtle hand tremor with mild cogwheel rigidity in b/l UE, mainly at the elbow joint. Lower extremity b/l hip flexion 4+/5, otherwise 5-/5 bilateral symmetrical. Mild stiffness in the bilateral lower extremities. No tremor noted in LE. Reflexes are 2+ with finger flexion bilateral upper extremities, right more than the left positive finger flexion. LE spastic,hyperreflexia bilateral knees, nonsustained clonus left ankle. Plantars left upgoing, right mute. Sensation is intact, bilateral and symmetrical. Cerebellar function, kexfpc-cw-homc and cpom-id-ogek is intact. The patient sits at the edge of the bed with OT nurse at bed side Objective Radiology Results Last 72 hours Impressions Cervical Spine MRI 07/19/16 0000 Signed Impressions: Service Date/Time: Tuesday, July 19, 2016 11:41 - CONCLUSION: 1. Prominent degenerative changes at C4-5 with broad based posterior disc osteophyte complex. No canal stenosis. 2. Minimal retrolisthesis C5 on C6 with broad-based posterior disc osteophyte complex causing mild canal stenosis. 3. Minimal broad-based posterior disc osteophyte complex at C6-7 without canal stenosis. Giancarlo Sow MD Brain MRI 07/18/16 0000 Signed Impressions: Service Date/Time: Monday, July 18, 2016 20:47 - CONCLUSION: 1. No acute hemorrhage, stroke or mass effect. 2. Atrophy and chronic small vessel ischemic change. Cleveland Delvalle MD OssiChace MD Jul 20, 2016 22:01
[2016-07-21] VITALS: BP 136/80; PULSE 76; RESP 18; TEMP 97.4; O2SAT 97
[2016-07-21] MEDS: CARBIDOPA/LEVODOPA 10 MG/100 MG TAB PO SCH ×3 (06:00→21:12)
[2016-07-21] MEDS ORDERED: ALPRAZolam 0.25 MG TAB PO PRN (07:15)
--- NOTE | 2016-07-21 07:19 | HHI.FPPN ---
Subjective Remarks Patient seen this morning. No acute events overnight. Vitals essentially WNL. Cele c/o continued visual hallucination. Again, she states she "sees the TV, but it looks like it is on the ceiling". Hallucinations are not worsening. Per nursing, no behavioral issues o/n. [place]ola out. Attempted bladder training overnight, but apparently patient stayed in bed all night and woke up wet. Daughter is brining her depends. Patient denies any F/C or N/V. Tolerating a PO diet. (Rod Herrera MD R3) Objective Vitals Vital Signs Date Time Temp Pulse Resp B/P Pulse Ox O2 Delivery O2 Flow Rate FiO2 07/21/16 00:00 97.4 76 18 136/80 97 07/20/16 20:00 99.5 74 18 109/72 96 07/20/16 19:47 97 21 07/20/16 16:00 97.8 79 20 109/69 98 07/20/16 12:00 98.1 78 20 128/72 98 07/20/16 08:19 98 21 07/20/16 08:00 97.4 71 20 135/79 98 I/O 07/20/16 07/20/16 07/20/16 07/21/16 07/21/16 07/21/16 07:00 15:00 23:00 07:00 15:00 23:00 Intake Total 240 ml 360 ml 220 ml Output Total 400 ml 325 ml 200 ml 200 ml Balance -160 ml 35 ml 20 ml -200 ml Intake Oral 240 ml 360 ml 220 ml Output Urine Total 400 ml 325 ml 200 ml 200 ml # Bowel Movements 0 (Rod Herrera MD R3) Result Diagram: 07/19/16 0404 07/19/16 0414 Objective Remarks GENERAL: This is a very thin female patient. Sitting up in bed in no apparent distress. ? masked facies. SKIN: No rashes. Ecchymoses noted on the dorsal surface left hand. CARDIOVASCULAR: Regular rate and rhythm without murmurs, gallops, or rubs. RESPIRATORY: Clear to auscultation. Breath sounds equal bilaterally. No wheezes , rales, or rhonchi. GASTROINTESTINAL: Abdomen soft, non-tender, nondistended. MUSCULOSKELETAL: Arthritic changes of MCP, PIP, and DIP joints of hands. Extremities without clubbing, cyanosis, or edema. There does appear to be some cogwheeling of the upper extremities (L>R) NEUROLOGICAL: Awake and alert. (Rod Herrera MD R3) Date of Insertion: Jul 18, 2016 (Rod Herrera MD R3) A/P Assessment and Plan 85-year-old female presented progressive weakness and inability to ambulate. Now c/o persistent visual hallucination weakness on sinemet. Discharge Planning Needs discharge to SNF. Patient will need 3 night stay in hospital to qualify. Spoke with CM this AM regarding admitting criteria. Appreciate their assistance. Patient has been approved at [facility] in [place]. Will discuss with Dr. Nunes. (Rod Herrera MD R3) Attending Attestation Pt. examined and case discussed with resident physicians I have read the above note and agree with the assessment/plan as discussed with me I was involved in all medical decision making for this patient Clement Nunes MD (Clement Nunes MD) Problem List: (1) Generalized muscle weakness Status: Acute Plan: Likely FTT. Does have upper extremity spasticity. ? Parkinson's. -MRI brain performed and was negative except for chronic ischemic changes -MRI cervical spine shows diffuse degenerative disc disease with mild C5-C6 canal stenosis. -Patient was started on Zoloft for possible depression given progressive loss of independence -Physical therapy and occupational consulted to evaluate patient. Appreciate their care. They have recommended rehab at discharge. -Appreciate neurology evaluation of patient, started on carbidopa/levodopa 10 100 every 8 hours. Per neuro, keep on this same dose for now. Monitor for persistent visual hallucinations. -Psychiatry has evaluated patient. Appreciate their recs. Will make xanax 0.25mg PO q8 available for anxiety. Increase Zoloft to 50mg daily. -Case management consulted to assist with discharge planning History: -Lab work including CBC and CMP within normal limits -Vitamin B-12, folate, and TSH within normal limits (2) Unable to ambulate Status: Acute Plan: Acute on chronic weakness resulting in inability to ambulate. -continue PT in the hospital with dispo to rehab facility. (3) Hallucination, visual Status: Acute Plan: Likely medication related. On further interview, patient has h/o similar hallucination with demerol. -cont sinemet for now, per neuro recs. -?, though patient also c/o hallucination this AM. Order to keep lights dim with TV off at night. (4) Depression with anxiety Status: Acute Plan: Has been assessed by psych. -add xanax, as above -zoloft increased to 50mg daily (5) Failure to thrive in adult Status: Acute Plan: Nutrition consulted to evaluate patient. -Continue with regular diet -Supplement meals with ensure shakes (6) Urge incontinence Status: Acute Plan: Appears to be a chronic issue. -canchola out -bladder training today -depends -changed activity to OOB with assistance (7) Hypertension Status: Acute Plan: Well controlled. Patient not on oral anti-hypertensives as an outpatient. -Continue to monitor and use as needed medication (8) Fluids/Electrolytes/Nutrition/Prophylaxis Status: Acute Plan: Fluids: tolerating PO Electrolytes: Monitor and replete as needed Nutrition: Regular diet with added boost DVT Prophylaxis:Lovenox 40mg subQ q24hr GI Prophylaxis: not indicated (Rod Herrera MD R3) Rod Herrera MD R3 Jul 21, 2016 07:19 Clement Nunes MD Jul 21, 2016 15:36
[2016-07-21] MEDS: DOCUSATE SODIUM 50 MG/SENNA 8.6 MG TAB PO SCH ×2 (07:28→21:12)
[2016-07-21 07:36] VITALS: O2SAT 98
[2016-07-21 08:00] VITALS: BP 104/66; PULSE 78; RESP 20; TEMP 97.6; O2SAT 98
[2016-07-21] MEDS: SERTRALINE HCL 50 MG TAB PO SCH (09:20)
[2016-07-21] MEDS: PANTOPRAZOLE SOD 40 MG DELAYED RELEASE TAB PO SCH (09:20)
[2016-07-21] MEDS: CALCIUM CARBONATE 1.25 GM (CA 500 MG) TAB PO SCH (09:21)
[2016-07-21] MEDS: SODIUM CHLORIDE 0.9% FLUSH 5 ML FLUSH FLUSH SCH ×2 (09:22→21:12)
[2016-07-21] MEDS: ENOXAPARIN SODIUM 40 MG/0.4 ML SYRINGE SQ SCH (09:22)
[2016-07-21 12:00] VITALS: BP 142/70; PULSE 75; RESP 20; TEMP 97.7; O2SAT 98
[2016-07-21] MEDS ORDERED: ALPR.25 PO (12:37)
[2016-07-21] MEDS ORDERED: ZOLO50TA PO (12:37)
[2016-07-21] MEDS ORDERED: SINE10100 PO (12:37)
--- NOTE | 2016-07-21 12:39 | HHI.DCPOC ---
Discharge Care Plan Diagnosis: (1) Failure to thrive in adult Goals to Promote Your Health * To prevent worsening of your condition and complications * To maintain your health at the optimal level Directions to Meet Your Goals Take your medications as prescribed Follow your dietary instruction Follow activity as directed Keep your appointments as scheduled Take your immunizations and boosters as scheduled If your symptoms worsen call your PCP, if no PCP go to Urgent Care Center or Emergency Room Smoking is Dangerous to Your Health. Avoid second hand smoke Call the 24-hour hour crisis hotline for domestic abuse at Rod Herrera MD R3 Jul 21, 2016 12:39
[2016-07-21 16:00] VITALS: BP 110/68; PULSE 75; RESP 20; TEMP 98.3; O2SAT 97
[2016-07-21 20:00] VITALS: BP 116/67; PULSE 72; RESP 16; TEMP 97.8; O2SAT 97
[2016-07-22 00:38] VITALS: BP 112/68; PULSE 70; RESP 18; TEMP 97.7; O2SAT 98
[2016-07-22 04:00] VITALS: BP 146/80; PULSE 73; RESP 18; TEMP 97.6; O2SAT 96
[2016-07-22] MEDS: CARBIDOPA/LEVODOPA 10 MG/100 MG TAB PO SCH (05:41)
[2016-07-22] MEDS ORDERED: SINE10100 PO ×2 (06:56→07:44)
[2016-07-22] MEDS ORDERED: ZOLO50TA PO ×2 (06:56→07:44)
[2016-07-22] MEDS ORDERED: ALPR.25 PO ×2 (06:56→07:44)
--- NOTE | 2016-07-22 07:43 | HHI.FPPN ---
Subjective Remarks Patient seen this morning. No acute events overnight. Vitals essentially WNL this AM. Cele reports strength subjectively improved compared to yesterday. She has been doing hip flexion/knee extension exercises and sit-ups in bed. She has been drinking Ensure, but wants to know if she can have Boost instead ( taste preference). Bladder training going well apparently. Has been getting OOB with assistance to commode. Has Depends, but have been dry. She had visual hallucination yesterday, but has not had any issues so far this morning. No other complaints. Anxious to go to rehab. (Rod Herrera MD R3) Objective Vitals Vital Signs Date Time Temp Pulse Resp B/P Pulse Ox O2 Delivery O2 Flow Rate FiO2 07/22/16 04:00 97.6 73 18 146/80 96 07/22/16 00:38 97.7 70 18 112/68 98 07/21/16 21:30 21 07/21/16 20:00 97.8 72 16 116/67 97 07/21/16 16:00 98.3 75 20 110/68 97 07/21/16 12:00 97.7 75 20 142/70 98 07/21/16 08:00 97.6 78 20 104/66 98 07/21/16 07:36 98 21 I/O 07/21/16 07/21/16 07/21/16 07/22/16 07/22/16 07/22/16 07:00 15:00 23:00 07:00 15:00 23:00 Intake Total 480 ml 240 ml Output Total 200 ml Balance -200 ml 480 ml 240 ml Intake Oral 480 ml 240 ml Output Urine Total 200 ml # Voids 2 4 # Bowel Movements 1 (Rod Herrera MD R3) Result Diagram: 07/19/16 0404 07/19/16 0414 Objective Remarks GENERAL: This is a very thin female patient. Sitting up in bed in no apparent distress. ? masked facies. SKIN: No rashes. Ecchymoses noted on the dorsal surface left hand. CARDIOVASCULAR: Regular rate and rhythm without murmurs, gallops, or rubs. RESPIRATORY: Clear to auscultation. Breath sounds equal bilaterally. No wheezes , rales, or rhonchi. GASTROINTESTINAL: Abdomen soft, non-tender, nondistended. MUSCULOSKELETAL: Arthritic changes of MCP, PIP, and DIP joints of hands. Extremities without clubbing, cyanosis, or edema. There does appear to be some cogwheeling of the upper extremities (L>R). 4/5 strength in bilateral LEs, improved compared to admission. NEUROLOGICAL: Awake and alert. No reported visual hallucination. (Rod Herrera MD R3) Date of Insertion: Jul 18, 2016 (Rod Herrera MD R3) A/P Assessment and Plan 85-year-old female presented progressive weakness and inability to ambulate. Now with subjectively improved strength with PT and sinemet. Discharge Planning Needs discharge to SNF. Patient has been approved at [facility]. Now meets Medicare requirements for SNF admission with 3 midnight stay. Will discuss with Dr. Nunes. (Rod Herrera MD R3) Attending Attestation Patient examined and case discussed with resident physicians I have read the above note and agree with the assessment/plan as discussed with me I was involved in all medical decision making for this patient Clement Nunes M.D. (Clement Nunes MD) Problem List: (1) Generalized muscle weakness Status: Acute Plan: Likely FTT. Does have upper extremity spasticity. ? Parkinson's. -MRI brain performed and was negative except for chronic ischemic changes -MRI cervical spine shows diffuse degenerative disc disease with mild C5-C6 canal stenosis. -Patient was started on Zoloft for possible depression given progressive loss of independence -Physical therapy and occupational consulted to evaluate patient. Appreciate their care. They have recommended rehab at discharge. -Appreciate neurology evaluation of patient, started on carbidopa/levodopa 10 100 every 8 hours. Visual hallucinations are improving. -Psychiatry has evaluated patient. Appreciate their recs. We have added xanax 0.25mg q8 PRN for anxiety and increased zoloft to 50mg daily. -Case management consulted to assist with discharge planning History: -Lab work including CBC and CMP within normal limits -Vitamin B-12, folate, and TSH within normal limits (2) Unable to ambulate Status: Acute Plan: Improving. Likely acute exacerbation of chronic issue. Patient has been ambulating with wheeled walker, but gait still unsteady. -continue PT in the hospital with dispo to rehab facility. (3) Hallucination, visual Status: Acute Plan: Improving. Likely medication related. On further interview, patient has h /o similar hallucination with demerol. -cont sinemet for now, per neuro recs. -?. Keep lights dim with TV off at night. (4) Depression with anxiety Status: Acute Plan: Has been assessed by psych. -xanax added and zoloft increased, as above (5) Failure to thrive in adult Status: Acute Plan: Nutrition consulted to evaluate patient. -Continue with regular diet -change to boost supplement, per patient request (6) Urge incontinence Status: Acute Plan: Mildly improved. Has been doing well with bedside commode. Appears to be a chronic issue. -depends -activity OOB with assistance (7) Hypertension Status: Acute Plan: Well controlled. Patient not on oral anti-hypertensives as an outpatient. -Continue to monitor and use as needed medication (8) Fluids/Electrolytes/Nutrition/Prophylaxis Status: Acute Plan: Fluids: tolerating PO Electrolytes: Monitor and replete as needed Nutrition: Regular diet with added boost DVT Prophylaxis:Lovenox 40mg subQ q24hr GI Prophylaxis: not indicated (Rod Herrera MD R3) Rod Herrera MD R3 Jul 22, 2016 07:43 Clement Nunes MD Jul 22, 2016 16:27
[2016-07-22 08:00] VITALS: BP 149/82; PULSE 74; RESP 18; TEMP 97.1; O2SAT 98
[2016-07-22 08:35] VITALS: O2SAT 98
[2016-07-22] MEDS: PANTOPRAZOLE SOD 40 MG DELAYED RELEASE TAB PO SCH (09:15)
[2016-07-22] MEDS: SERTRALINE HCL 50 MG TAB PO SCH (09:15)
[2016-07-22] MEDS: ENOXAPARIN SODIUM 40 MG/0.4 ML SYRINGE SQ SCH (09:15)
[2016-07-22] MEDS: DOCUSATE SODIUM 50 MG/SENNA 8.6 MG TAB PO SCH (09:15)
[2016-07-22] MEDS: CALCIUM CARBONATE 1.25 GM (CA 500 MG) TAB PO SCH (09:15)
[2016-07-22] MEDS: SODIUM CHLORIDE 0.9% FLUSH 5 ML FLUSH FLUSH SCH (09:16)
--- NOTE | 2016-08-10 10:50 | HHI.DS ---
Discharge Summary Admission Date Jul 19, 2016 at 07:54 Discharge Date: Jul 22, 2016 Admitting Diagnosis generalized weakness, unable to ambulate (1) Generalized muscle weakness Diagnosis: Principal Plan: Likely FTT. Does have upper extremity spasticity. ? Parkinson's. -MRI brain performed and was negative except for chronic ischemic changes -MRI cervical spine shows diffuse degenerative disc disease with mild C5-C6 canal stenosis. -Patient was started on Zoloft for possible depression given progressive loss of independence -Physical therapy and occupational consulted to evaluate patient. Appreciate their care. They have recommended rehab at discharge. -Appreciate neurology evaluation of patient, started on carbidopa/levodopa 10 100 every 8 hours. Visual hallucinations are improving. -Psychiatry has evaluated patient. Appreciate their recs. We have added xanax 0.25mg q8 PRN for anxiety and increased zoloft to 50mg daily. -Case management consulted to assist with discharge planning History: -Lab work including CBC and CMP within normal limits -Vitamin B-12, folate, and TSH within normal limits (2) Unable to ambulate Diagnosis: Secondary Plan: Improving. Likely acute exacerbation of chronic issue. Patient has been ambulating with wheeled walker, but gait still unsteady. -continue PT in the hospital with dispo to rehab facility. (3) Hallucination, visual Diagnosis: Secondary Plan: Improving. Likely medication related. On further interview, patient has h /o similar hallucination with demerol. -cont sinemet for now, per neuro recs. -?. Keep lights dim with TV off at night. (4) Depression with anxiety Diagnosis: Secondary Plan: Has been assessed by psych. -xanax added and zoloft increased, as above (5) Failure to thrive in adult Diagnosis: Secondary Plan: Nutrition consulted to evaluate patient. -Continue with regular diet -change to boost supplement, per patient request (6) Urge incontinence Diagnosis: Secondary Plan: Mildly improved. Has been doing well with bedside commode. Appears to be a chronic issue. -depends -activity OOB with assistance (7) Hypertension Diagnosis: Secondary Plan: Well controlled. Patient not on oral anti-hypertensives as an outpatient. -Continue to monitor and use as needed medication (8) Fluids/Electrolytes/Nutrition/Prophylaxis Diagnosis: Secondary Plan: Fluids: tolerating PO Electrolytes: Monitor and replete as needed Nutrition: Regular diet with added boost DVT Prophylaxis:Lovenox 40mg subQ q24hr GI Prophylaxis: not indicated [facility] (Dr. Rock) Brief History Patient is an 85-year-old female who presents to the ED following outpatient visit for work-up of generalized weakness. PCP is Dr. Nunes. She was seen in acute clinic at the [facility] this morning 08/04/2016. She does note these symptoms are chronic, with acute exacerbation. Onset was 3 years ago. Since October she has had notably worsening symptoms and has undergone extensive outpatient workup. Over the last three days she has not been able to walk at all. This has gotten worse over the last three days. Has a hard time getting in and out of bed. She began having a hard time pushing the walker. She feels weak and lightheaded, "I' ve had that for a while." Has had four falls, most recently in May 2016; she hit arms and mid-back with the fall (against kitchen cabinet). Other falls were more remote, including March 2016 onto carpeted floor. Work-up as outpatient includes labs, bone density scan, echocardiogram, has seen Neurology who performed an EMG of LE which were normal, has seen Cardiology. She states Neurologist wanted to order MRI but she did not want to proceed with this at that time. She had home physical therapy in April 2016 - May 2016. Uses a seated walker at home. Has a cane but cannot use this due to poor balance. She feels weak in "the whole body." She also endorses tremors in the legs, left leg started before right leg, which began three months and three weeks ago, respectively. She denies headaches, fevers, chills, shortness of breath. No chest pain. No fevers or recent respiratory or diarrheal illnesses. Flu shot was administered in January. No other recent vaccinations. PE at Discharge GENERAL: This is a very thin female patient. Sitting up in bed in no apparent distress. ? masked facies. SKIN: No rashes. Ecchymoses noted on the dorsal surface left hand. CARDIOVASCULAR: Regular rate and rhythm without murmurs, gallops, or rubs. RESPIRATORY: Clear to auscultation. Breath sounds equal bilaterally. No wheezes , rales, or rhonchi. GASTROINTESTINAL: Abdomen soft, non-tender, nondistended. MUSCULOSKELETAL: Arthritic changes of MCP, PIP, and DIP joints of hands. Extremities without clubbing, cyanosis, or edema. There does appear to be some cogwheeling of the upper extremities (L>R). 4/5 strength in bilateral LEs, improved compared to admission. NEUROLOGICAL: Awake and alert. No reported visual hallucination. Hospital Course 85 year-old female admitted 07/19 for weakness and inability to ambulate. Labs on admission including B12, folate, TSH were within normal limits. MRI head showed no acute change. Neurology was consulted. They recommended starting Sinemet. They also ordered C-spine MRI, which showed some degenerative disc disease along with mild C5-C6 canal stenosis. Physical therapy and occupational therapy were consulted. Patient had recently been started on 25 mg Zoloft. Psychiatry was consulted to assess need for additional medical therapy. They recommended increasing dose of Zoloft to 50 mg daily. They also recommended adding Xanax for anxiety. Patient's strength did improve with Sinemet. She initially complained of visual hallucination when starting the medication, which resolved by the end of her hospital course. She was discharged to rehabilitation on 07/22. Will need to follow up with primary care physician and neurology as an outpatient. Pt Condition on Discharge: Stable Discharge Disposition: Discharge to SNF Discharge Instructions DIET: Follow Instructions for: As Tolerated, No Restrictions Activities you can perform: Weight Bearing as Yesi Rod Herrera MD R3 Aug 10, 2016 10:50
[2016-09-06] MEDS ORDERED: ALPR.25 PO (16:42)
== END 2016-07-22 18:30 | DRG 641 ==
LOC: NEPA 16:47 → NEDH 17:36 → NEPFCDU 23:06 → OBSVTOIN 07-19 07:54 → HCPC 07-19 15:35
PROVIDERS: ADMIT Family Medicine; ATTEND Family Medicine
DX: R62.7 Adult failure to thrive (principal); M48.02 Spinal stenosis, cervical region; M62.838 Other muscle spasm; G25.2 Other specified forms of tremor; E87.6 Hypokalemia; N39.41 Urge incontinence; I10 Essential (primary) hypertension; F41.8 Other specified anxiety disorders; R44.1 Visual hallucinations; M50.322 Other cervical disc degeneration at C5-C6 level; K21.9 Gastro-esophageal reflux disease without esophagitis; M81.0 Age-related osteoporosis without current pathological fracture; R29.6 Repeated falls; R53.1 Weakness; R26.89 Other abnormalities of gait and mobility
CPT/HCPCS: 70551; 72156; 80048; 80053; 81001; 82550; 82607; 82746; 84443; 84484; 85025; 85610; 85730; 93005; A9579; G0378; J1650; P9612

== ENCOUNTER → 2016-10-13 | Outpatient (CLI) | payer MEDICARE, OTHER ==
[~2016-10-13] MED LIST changes: +ALPR.25 PO; +BONI150T PO; -DIAZ5 PO; -IBAN150T3 PO; -IMIT25TA PO; +SINE10100 PO; -ZOLO25TA PO; +ZOLO50TA PO; -[UNRECOGNIZED DRUG - REMARK]
[2016-10-13 09:37] LABS: HEMATOCRIT 37.5 % (35.0-46.0); MEAN CELL VOLUME 94.9 FL (80.0-100.0); MEAN CORPUSCULAR HEMOGLOBIN 31.2 PG (27.0-34.0); MEAN CORPUSCULAR HGB CONC 32.9 % (32.0-36.0); PLATELET COUNT 196 TH/MM3 (150-450); RED BLOOD COUNT 3.95 MIL/MM3 (4.00-5.30); RED CELL DISTRIBUTION WIDTH 14.6 % (11.6-17.2); REVIEW FLAG FINAL; WHITE BLOOD COUNT 7.7 TH/MM3 (4.0-11.0)
[2016-10-13 10:07] LABS: ANION GAP 8 MEQ/L (5-15); AST (GOT) 16 U/L (15-37); BICARBONATE 27.2 MEQ/L (21.0-32.0); BLOOD UREA NITROGEN 25 MG/DL (7-18); CHLORIDE 106 MEQ/L (98-107); GLOMERULAR FILTRATION RATE 48 ML/MIN (>89); GLUCOSE,FASTING 86 MG/DL (74-99); POTASSIUM 3.9 MEQ/L (3.5-5.1); SODIUM (NA) 141 MEQ/L (136-145)
[2016-10-13 10:18] LABS: ALKALINE PHOSPHATASE 118 U/L (45-117); ALT (GPT) 26 U/L (10-53); TOTAL BILIRUBIN ADULT 0.7 MG/DL (0.2-1.0)
== END ==
LOC: CLAB 08:56
PROVIDERS: ATTEND Family Medicine
DX: R53.83 Other fatigue (principal)
CPT/HCPCS: 36415; 80053; 84443; 85027

== ENCOUNTER → 2017-07-10 | Outpatient (CLI) | payer MEDICARE, OTHER ==
[~2017-07-10] MED LIST changes: -CENTTAB PO; -CHOL1TAB5 PO; +SERT-129 PO; +VITA500015 PO; -ZOLO50TA PO
[2017-07-10 09:17] LABS: HEMATOCRIT 35.4 % (35.0-46.0); HEMOGLOBIN 12.1 GM/DL (11.6-15.3); MEAN CELL VOLUME 92.7 FL (80.0-100.0); MEAN CORPUSCULAR HEMOGLOBIN 31.7 PG (27.0-34.0); MEAN CORPUSCULAR HGB CONC 34.2 % (32.0-36.0); MEAN PLATELET VOLUME 7.9 FL (7.0-11.0); PLATELET COUNT 192 TH/MM3 (150-450); RED BLOOD COUNT 3.82 MIL/MM3 (4.00-5.30); RED CELL DISTRIBUTION WIDTH 14.8 % (11.6-17.2); WHITE BLOOD COUNT 6.7 TH/MM3 (4.0-11.0)
[2017-07-10 09:47] LABS: ALBUMIN 3.7 GM/DL (3.4-5.0); AST (GOT) 18 U/L (15-37); BICARBONATE 26.3 MEQ/L (21.0-32.0); BLOOD UREA NITROGEN 33 MG/DL (7-18); CALCIUM 8.9 MG/DL (8.5-10.1); CHLORIDE 104 MEQ/L (98-107); CREATININE 1.19 MG/DL (0.50-1.00); GLOMERULAR FILTRATION RATE 43 ML/MIN (>89); GLUCOSE,FASTING 89 MG/DL (74-99); SODIUM (NA) 138 MEQ/L (136-145)
[2017-07-10 09:48] LABS: ALT (GPT) 7 U/L (10-53); CHOLESTEROL 243 MG/DL (120-200); TRIGLYCERIDES 133 MG/DL (42-150)
[2017-07-10 09:51] LABS: ALKALINE PHOSPHATASE 101 U/L (45-117); CHOLESTEROL/ HDL RATIO 3.45 RATIO; HDL CHOLESTEROL 70.3 MG/DL (40.0-60.0); LDL CHOLESTEROL 146 MG/DL (0-99); TOTAL BILIRUBIN ADULT 0.7 MG/DL (0.2-1.0); TOTAL PROTEIN 6.7 GM/DL (6.4-8.2)
== END ==
LOC: CLAB 08:22
PROVIDERS: ATTEND Family Medicine
DX: G20 Parkinson's disease (principal); E78.01 Familial hypercholesterolemia
CPT/HCPCS: 36415; 80053; 80061; 85027

== ENCOUNTER 2017-11-27 10:11 | Inpatient (IN) ==
[2017-11-27 11:01] LABS: ABG Base Excess -1.4 mmol/L (-2-2); ABG PCO2 32 mmHg (38-42); ABG PO2 66 mmHg (61-120)
[2017-11-27 11:05] LABS: Baso # (Auto) 0.1 th/mm3 (0.0-0.2); Baso % (Auto) 0.3 % (0.0-2.0); Hematocrit 32.1 % (35.0-46.0); Hemoglobin 11.1 gm/dL (11.6-15.3); Lymph # (Auto) 0.4 th/mm3 (1.0-4.8); Lymph % (Auto) 2.2 % (9.0-44.0); Mean Corpuscular HGB Conc 34.5 % (32.0-36.0); Mean Corpuscular Hemoglobin 31.7 pg (27.0-34.0); Mean Corpuscular Volume 91.8 fL (80.0-100.0); Mean Platelet Volume 8.1 fL (7.0-11.0); Mono # (Auto) 1.6 th/mm3 (0.0-0.9); Mono % (Auto) 8.3 % (0.0-8.0); Neut # (Auto) 16.9 th/mm3 (1.8-7.7); Neut % (Auto) 89.2 % (16.0-70.0); Platelet Count 212 th/mm3 (150-450); Red Cell Distribution Width 15.1 % (11.6-17.2); White Blood Count 18.9 th/mm3 (4.0-11.0)
[2017-11-27 11:30] LABS: Alanine Aminotransferase 11 U/L (10-53); Albumin 3.7 g/dL (3.4-5.0); Anion Gap 9 meq/L (5-15); Aspartate Aminotransferase 25 U/L (15-37); Blood Urea Nitrogen 42 mg/dL (7-18); Carbon Dioxide 24.5 meq/L (21.0-32.0); Chloride 107 meq/L (98-107); Glomerular Filtration Rate 34 mL/min (>89); Glucose,Random 107 mg/dL (74-106); Potassium 4.2 meq/L (3.5-5.1); Sodium 140 meq/L (136-145)
[2017-11-27 11:33] LABS: Alkaline Phosphatase 103 U/L (45-117); Creatine Kinase 174 U/L (26-192); Total Protein 6.4 g/dL (6.4-8.2)
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
[2017-11-27] MEDS ORDERED: Bisacodyl 10 MG Supp RECTAL PRN (12:43)
[2017-11-27] MEDS ORDERED: Acetaminophen 325 MG Tablet PO PRN (12:43)
[2017-11-27] MEDS ORDERED: Dextrose 50% in Water 50 ML Vial IV.PUSH PRN (12:46)
[2017-11-27] MEDS ORDERED: Potassium Phosphate Inj 30 MMOL in Sodium Chlor 0.9% Inj 250 ML IV.SIG PRN (12:47)
[2017-11-27] MEDS ORDERED: Magnesium Oxide 400 MG Tablet PO PRN (12:47)
[2017-11-27] MEDS ORDERED: Potassium Phosphate 500 MG Soluble Tablet PO PRN ×2 (12:47)
[2017-11-27] MEDS ORDERED: Sodium Phosphate Inj 30 MMOL in Sodium Chlor 0.9% Inj 250 ML IV.SIG PRN (12:47)
[2017-11-27] MEDS ORDERED: Potassium Chlor 40 mEq Premix 40 MEQ/100 ML PIGGYBACK IV.SIG PRN ×2 (12:47)
[2017-11-27] MEDS ORDERED: Potassium Chloride 25 MEQ Effervescent Tablet PO PRN (12:47)
[2017-11-27] MEDS ORDERED: Magnesium Sulfate Inj 2 GM in Sodium Chlor 0.9% Inj 96 ML IV.SIG PRN (12:47)
[2017-11-27] MEDS ORDERED: Magnesium Sulfate Inj 4 GM in Sodium Chlor 0.9% Inj 92 ML IV.SIG PRN (12:47)
[2017-11-27] MEDS ORDERED: Potassium Chlor 20 mEq Premix 20 MEQ/100 ML PIGGYBACK IV.SIG PRN (12:47)
[2017-11-27] MEDS ORDERED: ALPRAZolam 0.25 MG Tablet PO PRN (13:18)
[2017-11-27] MEDS: Heparin - SQ 10,000 UNITS/ML Vial SQ SCH ×2 (13:31→16:46)
[2017-11-27] MEDS: Sod Chloride 0.9% Inj 1,000 ML IV.CONT SCH (13:32)
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
[2017-11-27] MEDS ORDERED: Lidocaine 2% 100 MG/5 ML Syringe ONE (14:01)
[2017-11-27] MEDS ORDERED: Propofol 1000 mg/100 ml Inj 1,000 MG/100 ML BOTTLE ONE (14:01)
[2017-11-27] MEDS ORDERED: Succinylcholine Inj 200 MG/10 ML Vial ONE (14:02)
[2017-11-27] MEDS ORDERED: Norepinephrine Inj 4 MG/4 ML Ampul ONE (14:04)
[2017-11-27 14:18] LABS: Troponin I 0.17 ng/mL (0.02-0.05)
[2017-11-27] MEDS ORDERED: Morphine Inj 4 MG/ML Vial IV.PUSH PRN (15:15)
[2017-11-27] MEDS ORDERED: Etomidate Inj 20 MG/10 ML Ampul IV.PUSH ONE (15:26)
--- NOTE | 2017-11-27 15:34 | P.PCN ---
Date of procedure: 11/27/17 Pre-op diagnosis: Acute respiratory failure Post-op diagnosis: same Procedure: DATE: 11/27/2017 PROCEDURE: Orotracheal intubation INDICATION: Acute hypoxic respiratory failure/AMS DETAILS OF PROCEDURE The patient was placed in optimal position and preoxygenated with 100% FiO2 via bag valve mask. At the start oxygen saturation was unknown as pulse ox was not reading and patient appeared cyanotic %. The patient was administered no medication. I entered the oropharynx with a size 4 Esquivel laryngoscope blade and obtained a grade 3 view of the airway. On single attempt a size 8.0 cuffed endotracheal tube was passed and slipped down into the esophagus. Initially there was positive end-tidal CO2 detector changes however unable to maintain saturations. Endotracheal tube was removed. Again using a size 4 blade and again with direct visualization of was passed through the vocal cords. Correct tube location was confirmed with end tidal CO2 detector and by auscultating over bilateral lung vickers. The endotracheal tube was secured with adhesive tape at a depth of 23 cm at the lips. The patient was connected to the ventilator. The patient tolerated the procedure well without any apparent complications. Oxygen saturations were maintained greater than 95% all times. STAT chest x-ray pending at time of dictation.
--- NOTE | 2017-11-27 15:35 | P.PCN ---
Date of procedure: 11/27/17 Pre-op diagnosis: With elevated carboxyhemoglobin currently unresponsive with no IV access Post-op diagnosis: same Procedure: DATE: 11/27/2017 CENTRAL LINE PLACEMENT: Right internal jugular vein. Ultrasound-guided INDICATION: Central venous access CONSENT Informed consent for procedure was obtained from from daughter at bedside. DESCRIPTION OF THE PROCEDURE The patient was placed in supine position. The skin was cleansed with Chloraprep. Additional barrier precautions included large sterile drape, sterile gloves, sterile gown, face mask, and hat. 1 % lidocaine was used for local anesthesia. Under direct ultrasound guidance and on initial attempt, the vein was accessed with an introducer needle. The guide wire was advanced and the tract was dilated. Using Seldinger technique a 7 Welsh 20 cm antimicrobial coated triple-lumen catheter was advanced to a depth of 15 centimeters. The guide wire was removed. All ports had good return of dark venous blood and flushed easily with saline. The central line was secured with 2.0 silk. A sterile dressing with antibiotic disc was applied. ESTIMATED BLOOD LOSS: Minimal COMPLICATIONS: No apparent complications. STAT chest x-ray pending at time of dictation
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
[2017-11-27 16:13] LABS: ABG Base Excess -3.6 mmol/L (-2-2); ABG PCO2 39 mmHg (38-42); ABG PO2 376 mmHg (61-120)
[2017-11-27] MEDS ORDERED: SODIUM THIOSULFATE IV.SIG ONE (16:30)
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
[2017-11-27] MEDS: Oral Hygiene Kit OROPHARYNG SCH (17:16)
[2017-11-27] MEDS: Hypromellose 0.3% Opth Gel 10 GM Bottle EACH EYE SCH (17:16)
[2017-11-27] MEDS ORDERED: Midazolam Inj 5 MG/ML 1 ML Vial ONE (18:49)
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
[2017-11-27] MEDS ORDERED: Piperacil/Tazo 3.375 GM Premix 50 ML IV.SIG SCH (19:30)
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
[2017-11-27] MEDS ORDERED: Vancomycin Consult Pharmacy 1 EACH OTHER SCH (20:00)
[2017-11-27] MEDS: Senna/Docusate Sodium 8.6/50 MG Tablet PO SCH (20:15)
[2017-11-27] MEDS: Insulin NovoLOG Aspart Correctional Sugar Inj SQ SCH (20:17)
[2017-11-27] MEDS: Chlorhexidine 0.12% Oral Kit 15 ML UDC OROPHARYNG SCH (20:19)
[2017-11-27] MEDS ORDERED: Vancomycin Inj 700 MG in Sodium Chlor 0.9% Inj 250 ML IV.SIG ONE (21:00)
[2017-11-27] MEDS: Propofol 1000 mg/100 ml Inj 1,000 MG/100 ML BOTTLE IV.CONT PRN (21:39)
[2017-11-27 22:29] LABS: Amorphous Sediment,Urine Rare /hpf; Bacteria,Urine Moderate /hpf; Bilirubin,Urine Negative (Negative); Clarity,Urine Cloudy (Clear); Color,Urine Yellow (Yellw/Straw); Glucose,Urine (UA) 150 mg/dL (Negative); Hyaline Casts,Urine 1 /lpf (0-3); Leukocyte Esterase,Urine Trace (Negative); Mucus,Urine Few /lpf (Occasional); Nitrite,Urine Negative (Negative); Specific Gravity,Urine 1.017 (1.002-1.035); Squamous Epithelial Cell,Urine 1 /hpf (0-5)
[2017-11-27] MEDS: Piperacil/Tazo 2.25 GM Premix 50 ML IV.SIG SCH (22:38)
[2017-11-28] MEDS: Heparin 10,000 UNITS/10 ML Vial (for IV use) OTHER SCH ×4 (00:14→21:55)
[2017-11-28] MEDS: Hypromellose 0.3% Opth Gel 10 GM Bottle EACH EYE SCH ×3 (01:08→18:24)
[2017-11-28] MEDS: Oral Hygiene Kit OROPHARYNG SCH ×4 (01:08→16:40)
[2017-11-28] MEDS: Insulin NovoLOG Aspart Correctional Sugar Inj SQ SCH ×4 (01:12→19:35)
[2017-11-28] MEDS: Heparin - SQ 10,000 UNITS/ML Vial SQ SCH ×2 (01:13→14:09)
[2017-11-28] MEDS ORDERED: fentaNYL 10 mcg/mL Premix Drip 2,500 MCG/250 ML BAG IV.SIG PRN (02:02)
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
[2017-11-28] MEDS: Sod Chloride 0.9% Inj 1,000 ML IV.CONT SCH (03:25)
[2017-11-28] MEDS: Chlorhexidine Gluconate 2% 1 Pack (2 Cloths) TOPICAL SCH (03:25)
[2017-11-28] MEDS: Piperacil/Tazo 2.25 GM Premix 50 ML IV.SIG SCH ×4 (03:25→20:39)
[2017-11-28] MEDS ORDERED: Chlorhexidine Gluconate 2% 1 Pack (2 Cloths) TOPICAL PRN (04:00)
[2017-11-28 05:13] LABS: ABG Base Excess -6.2 mmol/L (-2-2); ABG PCO2 35 mmHg (38-42); ABG PO2 478 mmHG (61-120)
[2017-11-28] MEDS: Propofol 1000 mg/100 ml Inj 1,000 MG/100 ML BOTTLE IV.CONT PRN ×2 (05:58→23:42)
[2017-11-28 06:05] LABS: Baso % (Auto) 0.2 % (0.0-2.0); Eos % (Auto) 0.1 % (0.0-4.0); Hematocrit 30.6 % (35.0-46.0); Hemoglobin 10.6 gm/dL (11.6-15.3); Lymph # (Auto) 0.5 th/mm3 (1.0-4.8); Lymph % (Auto) 4.3 % (9.0-44.0); Mean Corpuscular HGB Conc 34.6 % (32.0-36.0); Mean Corpuscular Volume 92.4 fL (80.0-100.0); Mean Platelet Volume 8.1 fL (7.0-11.0); Mono # (Auto) 0.6 th/mm3 (0.0-0.9); Mono % (Auto) 5.2 % (0.0-8.0); Neut # (Auto) 9.6 th/mm3 (1.8-7.7); Neut % (Auto) 90.2 % (16.0-70.0); Platelet Count 131 th/mm3 (150-450); Red Blood Count 3.31 mil/mm3 (4.00-5.30); Red Cell Distribution Width 14.8 % (11.6-17.2); White Blood Count 10.7 th/mm3 (4.0-11.0)
[2017-11-28 06:16] LABS: Activated Partial Thrombo Time 31.1 sec (24.3-30.1); INR 1.2 Ratio; Prothrombin Time 12.3 sec (9.8-11.6)
[2017-11-28 06:26] LABS: Albumin 2.7 g/dL (3.4-5.0); Anion Gap 13 meq/L (5-15); Aspartate Aminotransferase 19 U/L (15-37); Blood Urea Nitrogen 35 mg/dL (7-18); Calcium 7.5 mg/dL (8.5-10.1); Carbon Dioxide 20.7 meq/L (21.0-32.0); Chloride 112 meq/L (98-107); Glomerular Filtration Rate 40 mL/min (>89); Glucose,Random 112 mg/dL (74-106); Potassium 3.2 meq/L (3.5-5.1); Sodium 146 meq/L (136-145)
[2017-11-28 06:30] LABS: Alanine Aminotransferase 9 U/L (10-53); Alkaline Phosphatase 76 U/L (45-117); Phosphorus 3.9 mg/dL (2.5-4.9); Total Protein 5.4 g/dL (6.4-8.2); Troponin I 0.14 ng/mL (0.02-0.05)
[2017-11-28] MEDS: Potassium Chlor 20 mEq Premix 20 MEQ/100 ML PIGGYBACK IV.SIG PRN ×4 (06:54→16:38)
[2017-11-28] MEDS: Senna/Docusate Sodium 8.6/50 MG Tablet PO SCH ×2 (08:31→20:38)
[2017-11-28] MEDS: Chlorhexidine 0.12% Oral Kit 15 ML UDC OROPHARYNG SCH ×2 (08:32→20:40)
[2017-11-28] MEDS: Beneprotein Powder Packet G-TUBE SCH ×3 (09:00→19:35)
[2017-11-28] MEDS ORDERED: Potassium Chlor 20 mEq Premix 20 MEQ/100 ML PIGGYBACK IV.SIG PRN (10:11)
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
[2017-11-28] MEDS ORDERED: Potassium Chlor 40 mEq Premix 40 MEQ/100 ML PIGGYBACK IV.SIG PRN (10:20)
[2017-11-28] MEDS ORDERED: Potassium Chloride 20 MEQ Pwd Pkt NG/OG ONE (10:49)
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
--- NOTE | 2017-11-28 11:07 | ECG ---
Date Performed: 11/27/2017 Time Performed: 13:23:47 PTAGE: 87 years EKG: Sinus rhythm NORMAL ECG PREVIOUS TRACING : 07/18/2016 15.20 DOCTOR: Lito Hernández Interpretating Date/Time 11/28/2017 11:05:41
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
[2017-11-28] MEDS: Midazolam 50 MG/50 ML Inj 50 MG/50 ML BAG IV.CONT PRN (13:21)
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
[2017-11-28] MEDS ORDERED: RASS Change Order MISCELLANE ONE ×2 (14:00)
[2017-11-29] MEDS: Insulin NovoLOG Aspart Correctional Sugar Inj SQ SCH ×2 (01:31→06:01)
[2017-11-29] MEDS: Hypromellose 0.3% Opth Gel 10 GM Bottle EACH EYE SCH ×2 (01:31→12:02)
[2017-11-29] MEDS: Oral Hygiene Kit OROPHARYNG SCH ×2 (01:32→04:57)
[2017-11-29] MEDS: Heparin - SQ 10,000 UNITS/ML Vial SQ SCH (01:35)
[2017-11-29 04:38] LABS: Activated Partial Thrombo Time 31.3 sec (24.3-30.1); INR 1.1 Ratio; Prothrombin Time 11.2 sec (9.8-11.6)
[2017-11-29 04:45] LABS: Alanine Aminotransferase 9 U/L (10-53); Albumin 2.4 g/dL (3.4-5.0); Alkaline Phosphatase 68 U/L (45-117); Anion Gap 12 meq/L (5-15); Aspartate Aminotransferase 20 U/L (15-37); Blood Urea Nitrogen 31 mg/dL (7-18); Calcium 7.8 mg/dL (8.5-10.1); Carbon Dioxide 17.9 meq/L (21.0-32.0); Chloride 115 meq/L (98-107); Creatine Kinase 145 U/L (26-192); Glomerular Filtration Rate 52 mL/min (>89); Glucose,Random 105 mg/dL (74-106); Phosphorus 2.6 mg/dL (2.5-4.9); Potassium 4.2 meq/L (3.5-5.1); Sodium 145 meq/L (136-145); Total Protein 5.1 g/dL (6.4-8.2); Vancomycin,Random 4.6 Comment
[2017-11-29] MEDS: Heparin 10,000 UNITS/10 ML Vial (for IV use) OTHER SCH ×2 (04:50→09:38)
[2017-11-29 04:53] LABS: Baso % (Auto) 0.5 % (0.0-2.0); Eos # (Auto) 0.1 th/mm3 (0.0-0.4); Eos % (Auto) 0.8 % (0.0-4.0); Hemoglobin 9.6 gm/dL (11.6-15.3); Lymph # (Auto) 0.5 th/mm3 (1.0-4.8); Lymph % (Auto) 6.2 % (9.0-44.0); Mean Corpuscular HGB Conc 34.1 % (32.0-36.0); Mean Corpuscular Hemoglobin 31.7 pg (27.0-34.0); Mean Corpuscular Volume 92.9 fL (80.0-100.0); Mean Platelet Volume 8.8 fL (7.0-11.0); Mono # (Auto) 0.5 th/mm3 (0.0-0.9); Mono % (Auto) 6.1 % (0.0-8.0); Neut % (Auto) 86.4 % (16.0-70.0); Platelet Count 104 th/mm3 (150-450); Red Blood Count 3.02 mil/mm3 (4.00-5.30); Red Cell Distribution Width 15.4 % (11.6-17.2); White Blood Count 8.1 th/mm3 (4.0-11.0)
[2017-11-29] MEDS: Chlorhexidine Gluconate 2% 1 Pack (2 Cloths) TOPICAL SCH (04:57)
[2017-11-29] MEDS: Piperacil/Tazo 2.25 GM Premix 50 ML IV.SIG SCH ×2 (04:57→09:05)
[2017-11-29] MEDS: Propofol 1000 mg/100 ml Inj 1,000 MG/100 ML BOTTLE IV.CONT PRN (05:13)
[2017-11-29] MEDS: Midazolam 50 MG/50 ML Inj 50 MG/50 ML BAG IV.CONT PRN (05:13)
[2017-11-29 05:42] LABS: ABG Base Excess -7.4 mmol/L (-2-2); ABG PCO2 34 mmHg (38-42); ABG PO2 547 mmHG (61-120)
[2017-11-29] MEDS ORDERED: Pharmacy Ordered Lab Info OTHER ONE (06:00)
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
[2017-11-29] MEDS ORDERED: Vancomycin Inj 500 MG in Sodium Chlor 0.9% Inj 100 ML IV.SIG SCH (12:00)
[2017-11-29] MEDS: Beneprotein Powder Packet G-TUBE SCH (12:02)
[2017-11-29] MEDS: Chlorhexidine 0.12% Oral Kit 15 ML UDC OROPHARYNG SCH ×2 (12:02→20:54)
[2017-11-29] MEDS: Senna/Docusate Sodium 8.6/50 MG Tablet PO SCH (12:03)
[2017-11-29] MEDS ORDERED: Morphine Inj 4 MG/ML Vial IV.PUSH ONE (14:48)
[2017-11-29] MEDS ORDERED: Acetaminophen 650 MG Supp RECTAL PRN (14:48)
[2017-11-29] MEDS ORDERED: Morphine Sulfate Inj 8 MG/ML Vial IV.PUSH ONE (14:48)
[2017-11-29] MEDS ORDERED: Bisacodyl 10 MG Supp RECTAL PRN (14:48)
[2017-11-29] MEDS ORDERED: Hyoscyamine Inj 0.5 MG/ML Ampul IV.PUSH PRN (14:48)
[2017-11-29] MEDS ORDERED: Hyoscyamine Inj 0.5 MG/ML Ampul IV.PUSH ONE (14:48)
[2017-11-29] MEDS ORDERED: Midazolam Inj 5 MG/ML 1 ML Vial IV.PUSH ONE ×2 (14:48)
[2017-11-29] MEDS: Morphine Inj 4 MG/ML Vial IV.PUSH SCH ×3 (16:40→23:04)
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
[2017-11-29] MEDS: Morphine Inj 4 MG/ML Vial IV.PUSH PRN ×2 (20:58→21:48)
[2017-11-30] MEDS: Morphine Inj 4 MG/ML Vial IV.PUSH PRN ×4 (00:29→09:38)
[2017-11-30] MEDS: Oral Hygiene Kit OROPHARYNG SCH ×2 (01:35→04:19)
[2017-11-30] MEDS: Morphine Inj 4 MG/ML Vial IV.PUSH SCH ×2 (04:19→07:52)
[2017-12-01] MEDS ORDERED: Pharmacy Ordered Lab Info OTHER ONE (11:45)
== END 2017-11-30 10:06 | disposition expired ==
LOC: NEPC 10:11 → NEDA 11:07 → NEDH 15:01 → HIMC 18:40
PROVIDERS: ADMIT Internal Medicine Critical Care Medicine; ATTEND Internal Medicine Critical Care Medicine